=== PATIENT | male | born 1950 | race Caucasian/White ===

== ENCOUNTER 2017-04-12 09:32 | Inpatient (IN) | payer MEDICARE, OTHER ==
[2017-04-12] VITALS (7 sets, daily range): BP systolic 122–181; BP diastolic 56–89; PULSE 91–110; RESP 18–25; O2SAT 90–94
[~2017-04-12] VITALS: Ht 180.3 cm; Wt 154.4 kg
[~2017-04-12 09:32] MED LIST: ACAR25TA PO; ASA325 PO; DIT5 PO; FURO-3 PO; GLPZ5T1 PO; GLU500 PO; K10 PO; LIP20 PO; LOP50 PO; URO10ERT PO
[2017-04-12] MEDS ORDERED: Ondansetron 2 mg/mL 2 mL Inj IV PRN (10:00)
[2017-04-12] MEDS ORDERED: 0.9% Sodium Chloride 1,000 ML IV ONE ×2 (10:00→12:55)
[2017-04-12 10:08] LABS: BASOPHILS % (AUTO) 0.4 % (0-3); EOSINOPHILS % (AUTO) 0.5 % (0-5); Mean Corpuscular Hemoglobin 28.9 pg (27.0-35.0); Mean Corpuscular Volume 90.2 fL (81-100); NEUTROPHILS % (AUTO) 78.2 % (40-74); Platelet Count 154 bil/L (150-400)
--- NOTE | 2017-04-12 10:15 | ED.REPORT ---
HPI-General Illness Date of Service Apr 12, 2017 ED Provider: Cyrus Ford MD The patient is a 66 year old male w/ a hx of morbid obesity, sleep apnea, DM II and stent placed 10 years ago presents to the ED via EMS due to dizziness for the past 6 months and increased in severity today. The patient had 2 episodes of dizziness today, no LOC. The first occurrence, the patient felt dizzy and weak, fell in the shower and pressed his lifeline button. EMS arrived, performed a lift assist and then left. Later in the morning, he felt dizzy again and called [facility] a second time. Pt describes the sensation as feeling "unsteady and weak on his feet." Pt also reports a rash on his lower abdomen. He lives alone in an apartment and has fallen down in the shower 5 times in the past year. His regular doctor is Dr. Brody Borjas. The pt is a poor historian. He denies fever, chest pain, SOB and cough. Pt is a full code. Nursing Notes Stated Complaint: WEAKNESS Chief Complaint: General Complaint Nursing Notes Reviewed: Yes Allergies: Coded Allergies: No Known Allergies (Verified , 04/05/04) Scheduled Acarbose (Acarbose) 50 Mg Tablet 50 MG PO TIDWM Alfuzosin ER (Alfuzosin ER) 10 Mg Tab.er.24h 10 MG PO DAILY Aspirin (Aspirin) 325 Mg Tablet 325 MG PO DAILY Atorvastatin Calcium (Atorvastatin Calcium) 80 Mg Tablet 80 MG PO DAILY Glipizide ER (Glipizide ER) 10 Mg Tab.er.24 10 MG PO QAM Metformin (Glucophage) 1,000 Mg Tablet 1,000 MG PO BID Metoprolol Tartrate (Metoprolol Tartrate) 50 Mg Tablet 50 MG PO BID Oxybutynin Chloride (Oxybutynin Chloride) 5 Mg Tablet 5 MG PO BID Sertraline HCl (Sertraline) 50 Mg Tablet 50 MG PO DAILY Scheduled PRN Albuterol HFA (Proair HFA) 8.5 Gm Hfa.aer.ad 2 PUFFS INHALATION Q4H PRN PRN For Shortness of Breath Fluticasone Propionate (Fluticasone Propionate Nasal) 16 Gm [place].susp 2 SPRAY NS DAILY PRN PRN For Congestion Furosemide (Furosemide) 40 Mg Tablet 40 MG PO QAM PRN PRN edema Potassium Chloride (Potassium Chloride) 10 Meq Capsule.er 10 MEQ PO QAM PRN PRN w/lasix General Time Seen by MD: 10:00 Chief Complaint Dizziness Hx Obtained From: Patient Arrived By: Ambulance Sudden in Onset?: Yes Onset Occurred: 1 - 4 hours ago Symptom Duration: Since onset Caused by: Accidental Context: Occurred at: Home injury Severity: Current: No pain currently Associated with: Reports: Dizziness, Weakness Recent Healthcare: No recent doctor visit, No recent hospitalization Similar Sx Previous: Yes Past Medical History Past Medical History DM II sleep apnea Past Surgical History 2 stents placed 2002 Reports: Cataract surgery Smoking History Current Every Day Smoker Social History Other Social History: Lives alone, Local resident Ambulatory Status Independent Review of Systems Full Review of Systems Constitutional: Denies: Fever Respiratory: Denies: Non-productive cough, Shortness of breath Cardiovascular: Denies: Chest pain Skin: Reports Rash (lower abdomen) Neurologic: Reports: Dizziness, Weakness, Denies: Change LOC Complete sys rev & neg: except as marked. Physical Exam Vital Signs Vital Signs Date Time Temp Pulse Resp B/P Pulse Ox O2 Delivery O2 Flow Rate FiO2 04/12/17 12:44 104 20 141/89 93 Room Air 04/12/17 09:40 36.7 110 25 122/63 91 Room Air Initial VS: Reviewed General/Constitutional: Awake, Alert, Cooperative Head / Eyes: Atraumatic, Normocephalic, PERRL, EOMI Neck: Atraumatic, Supple Respiratory / Chest: Atraumatic, No respiratory distress Cardiovascular: Heart rate NL, Regular rhythm, Heart sounds NL, No gallop, No murmurs, No rubs Abdomen: Non-tender, BS normoactive erythematous rash on lower abdomen rash is not warm Lower Extremity / Pelvis / MS: Atraumatic, Inspection NL, No edema Skin: Color NL, No rash, Dry Neurologic: Oriented X3, Speech NL, No motor deficits Interpretation & Diagnostics Lab Results Interpretation Result Diagram: 04/12/17 1004 04/12/17 1004 Test 04/12/17 10:04 04/12/17 12:30 White Blood Count 13.3th/mm3 (3.8-10.1) Red Blood Count 5.32mil/mm3 (4.40-5.80) Hemoglobin 15.4g/dL (13.8-17.2) Hematocrit 48.0% (41.0-50.0) Mean Corpuscular Volume 90.2fL (81-100) Mean Corpuscular Hemoglobin 28.9pg (27.0-35.0) Mean Corpuscular Hemoglobin Concent 32.1% (32.0-37.0) Red Cell Distribution Width 13.6% (12.3-15.4) Platelet Count 154bil/L (150-400) Neutrophils (%) (Auto) 78.2% (40-74) Lymphocytes (%) (Auto) 13.7% (14-46) Monocytes (%) (Auto) 7.0% (4-12) Eosinophils (%) (Auto) 0.5% (0-5) Basophils (%) (Auto) 0.4% (0-3) Sodium Level 141mEq/L (134-144) Potassium Level 3.9mEq/L (3.5-5.2) Chloride Level 101mEq/L (97-108) Carbon Dioxide Level 16mmol/L (18-29) Blood Urea Nitrogen 23mg/dL (8-27) Creatinine 1.16mg/dL (0.76-1.27) Estimat Glomerular Filtration Rate 67mL/min (>59) Glucose Level 356mg/dL (60-99) Calcium Level 10.1mg/dL (8.5-10.1) Magnesium Level 1.6mg/dL (1.6-2.6) Total Bilirubin 0.7mg/dL (0.0-1.2) Aspartate Amino Transf (AST/SGOT) 18U/L (0-50) Alanine Aminotransferase (ALT/SGPT) 17U/L (0-44) Alkaline Phosphatase 141U/L (25-160) Troponin T < 0.010ug/L (0.0-0.011) Total Protein 8.0g/dL (6.4-8.4) Albumin 4.0g/dL (3.4-5.0) Urine Color Yellow (YELLOW) Urine Appearance Clear (CLEAR,HAZY) Urine pH 5.0 (5.0-8.0) Urine Specific [place] 1.025 (1.003-1.035) Urine Protein Tracemg/dL (NEG,TRACE) Urine Glucose (UA) >1000mg/dL (NEGATIVE) Urine Ketones Negativemg/dL (NEGATIVE) Urine Occult Blood Negative (NEGATIVE) Urine Nitrite Negative (NEGATIVE) Urine Bilirubin Negative (NEGATIVE) Urine Urobilinogen Normalmg/dL (NORMAL) Urine Leukocyte Esterase Negative (NEGATIVE) Urine RBC 0-2/hpf (0-2) Urine WBC 0-5/hpf (0-5) Urine Epithelial Cells None/hpf (NONE-MOD) Urine Crystals None seen (NONE SEEN) Urine Bacteria None/hpf (NONE-FEW) Urine Hyaline Casts Occasional/lpf (NONE) Urine Granular Casts None seen (NONE SEEN) Urine Waxy Casts None seen (NONE SEEN) Urine Red Blood Cell Casts None seen (NONE SEEN) Urine White Blood Cell Casts None seen (NONE SEEN) Urine Mucus Present (None Seen) Urine Trichomonas None seen (NONE SEEN) Urine Yeast None (NONE SEEN) Urinalysis Comment None Urine Culture Reflexed Not indicated ECG Interpretation Time: 10:48 Interpreted by: ED physician Rhythm / Conduction: Tachycardia (rate 103) X-Ray Chest Interpretation Chest Xray Interpretation: IMPRESSION: Developing left basilar airspace disease is suspicious for pneumonia. Atelectasis and/or pleural effusion may also be present. Dictated by: Mike Chung M.D. on 04/12/2017 at 9:29 Approved by: Mike Chung M.D. on 04/12/2017 at 9:30 View: Portable Interpretation / Wet Read by: Interpret - Radiologist Re-Eval/Medical Decision Med Decision/Clinical Course 66-year-old male presenting with generalized weakness and near collapse. He is tachycardic and tachypneic with a leukocytosis elevated lactate and an infiltrate on his chest x-ray. Blood cultures have been obtained. He was given Rocephin and azithromycin covering for her to be required pneumonia. Is given fluid resuscitation. We admitted to the hospitalist service. Consultation : Referral / Consult Name: Yoni Berg Consulted With: Hospitalist Call Returned at: 13:55 Equipment Validation Engineer: Agrees with eval, Agrees with plan, Accepts admit Note: Case discussed. Dr. Berg accepts admit. Counseled Regarding: Diagnosis, Lab results, Need for admission Discharge & Departure Primary Impression: Community acquired bacterial pneumonia Additional Impression: Near syncope Disposition: ADMITTED TO HOSPITAL Discharge Condition All VS Reviewed: Yes Condition: Stable Referrals: Brody Borjas MD (PCP) Scribe Attestation Portion of this note were transcribed by Trinh Anderson. Dr. Liliana Rdoriguez, personally performed the history, physical exam, and medical decision-making: I reviewed and confirmed the accuracy for the information in the transcribed note. Signed by: westley García, 04/12/17 1400 copies to: Brody Borjas MD, Donald L MD Apr 12, 2017 10:15 Trinh Anderson Apr 12, 2017 10:22 Rhythm / Conduction: Tachycardia (rate 103) X-Ray Chest Interpretation Chest Xray Interpretation: IMPRESSION: Developing left basilar airspace disease is suspicious for pneumonia. Atelectasis and/or pleural effusion may also be present. Dictated by: Mike Chung M.D. on 04/12/2017 at 9:29 Approved by: Mike Chung M.D. on 04/12/2017 at 9:30 View: Portable Interpretation / Wet Read by: Interpret - Radiologist Re-Eval/Medical Decision Consultation : Referral / Consult Name: Yoni Berg Consulted With: Hospitalist Call Returned at: 13:55 Equipment Validation Engineer: Agrees with eval, Agrees with plan, Accepts admit Note: Case discussed. Dr. Berg accepts admit. Counseled Regarding: Diagnosis, Lab results, Need for admission Discharge & Departure Primary Impression: Community acquired bacterial pneumonia Additional Impression: Near syncope Disposition: ADMITTED TO HOSPITAL Discharge Condition All VS Reviewed: Yes Condition: Stable Referrals: Brody Borjas MD (PCP) Scribe Attestation Portion of this note were transcribed by Trinh Anderson. Dr. Liliana Rodriguez, personally performed the history, physical exam, and medical decision-making: I reviewed and confirmed the accuracy for the information in the transcribed note. Signed by: westley García, 04/12/17 1400 copies to: Brody Borjas MD, Donald L MD Apr 12, 2017 10:15 Trinh Anderson Apr 12, 2017 10:22 and confirmed the accuracy for the information in the transcribed note. Signed by: westley García, 04/12/17 1400 copies to: Brody Borjas MD, Donald L MD Apr 12, 2017 10:15 Trinh Anderson Apr 12, 2017 10:22
--- NOTE | 2017-04-12 10:32 | DRSVH ---
PROCEDURE: X-RAY CHEST ONE VIEW, PORTABLE ([id number]) INDICATIONS: gen weakness and tachycardia TECHNIQUE: One view of the chest was acquired. COMPARISON: [facility], CR, CHEST 1VW (PORTABLE), 03/26/2013, 22:24. [facility], CT, CHEST/ABD/PELVIS W/CON (PNL), 03/29/2013, 10:49. FINDINGS: Surgical changes and devices: None. Lungs and pleura: There appears to be developing airspace disease at the left lung base. The left di aphragm is least partially obscured. Aeration of the right lung is within normal limits. Mediastinum: Mediastinal contours appear normal. Heart size is normal. Bones and chest wall: No suspicious bony lesions. Overlying soft tissues appear unremarkable. IMPRESSION: Developing left basilar airspace disease is suspicious for pneumonia. Atelectasis and/or pleural effusion may also be present. Dictated by: Mike Chung M.D. on 04/12/2017 at 9:29 Approved by: Mike Chung M.D. on 04/12/2017 at 9:30
[2017-04-12 10:47] LABS: Magnesium 1.6 mg/dL (1.6-2.6); TROPONIN T < 0.010 ug/L (0.0-0.011)
[2017-04-12 12:59] LABS: APPEARANCE,URINE CLEAR (CLEAR,HAZY); COLOR,URINE YELLOW (YELLOW); OCCULT BLOOD,URINE NEGATIVE (NEGATIVE); UROBILINOGEN,URINE NORMAL (NORMAL)
[2017-04-12] MEDS ORDERED: Azithromycin Inj 500 MG in Dextrose 5% w/Vial Mate 250 ML IV ONE (13:10)
[2017-04-12] MEDS ORDERED: cefTRIAXone Inj 2,000 MG in Dextrose 5% Minibag Plus 50 ML IV ONE (13:10)
[2017-04-12] MEDS ORDERED: Ondansetron 2 mg/mL 2 mL Inj IVPUSH PRN ×2 (14:00→19:30)
[2017-04-12] MEDS ORDERED: Alum-Mag Hydrox-Simeth 30 mL Suspension PO PRN ×2 (14:00→19:30)
[2017-04-12] MEDS ORDERED: METF1000 PO (14:12)
[2017-04-12] MEDS ORDERED: POTA10CA42 PO (14:12)
[2017-04-12] MEDS ORDERED: SERT50TA9 PO (14:12)
[2017-04-12] MEDS ORDERED: FURO40TA4 PO (14:12)
[2017-04-12] MEDS ORDERED: ALFU10TA11 PO (14:12)
[2017-04-12] MEDS ORDERED: ASPI325T32 PO (14:12)
[2017-04-12] MEDS ORDERED: ATOR80TA77 PO (14:12)
[2017-04-12] MEDS ORDERED: ACAR50TA3 PO (14:12)
[2017-04-12] MEDS ORDERED: GLIP5TAB21 PO (14:12)
[2017-04-12] MEDS ORDERED: FLUT16SP NS (14:13)
[2017-04-12] MEDS ORDERED: ALBU8.5H2 INHALATION (14:18)
[2017-04-12] MEDS ORDERED: OXYB5TAB10 PO (14:18)
[2017-04-12] MEDS ORDERED: METO50TA3 PO (14:18)
--- NOTE | 2017-04-12 15:07 | NUR ---
Admit to [facility] Patient report called by Kellie Burger. Patient arrived to room 3017 via gurney and required 2 person extensive assist to scoot to bed. Patient was oriented to room, call light, television, staff, and visiting hours. Patient has general overall dry skin, a rash on abdomen, rash on lower back, scrotum is red and excoriated. Patient bed locked and call light within reach.
--- NOTE | 2017-04-12 15:34 | NUR ---
Personal belongings Patient was offered to place personal belongings in safe. Patient had wallet with $135, 3 visa cards and several store discount cards in it. A set of keys were placed in safety bag to be locked in safe as well.
--- NOTE | 2017-04-12 19:18 | PCM.HPMED ---
Subjective Date of Service Apr 12, 2017 Primary Provider: Admitting Physician: Yoni Berg Primary Care Physician: Brody Borjas MD Attending Physician: Yoni Berg Chief Complaint: near syncope, weakness History of Present Illness: 62-year-old gentleman with known diabetes mellitus type 2, coronary disease, hypertension, hyperlipidemia, obstructive sleep apnea and morbid obesity, who presents today with complaint of near syncope, generalized weakness and fall earlier today. He says he has been having symptoms of lightheadedness and weakness for at least the past 3-5 days but his symptoms were more pronounced today. While taking a shower earlier today he felt light headed and fell but says did not his head and did not loose consciousness. He called EMS who performed lift assist. But when his symptoms persisted he called EMS again and asked to be brought to the ED. He denies any fever, chills, cough, SOB, sore throat, ulcer, or pain any where. He does report some erythema of his abdominal pannus. In the ED his workup has been suggestive of possible pneumonia and he has received a dose of Ceftriaxone and Azithromycin. Review of Systems: Constitutional: Negative, except as otherwise mentioned in the history above. Ophthalmologic: Negative, except as otherwise mentioned in the history above. Cardiovascular: Negative, except as otherwise mentioned in the history above. Respiratory: Negative, except as otherwise mentioned in the history above. Gastrointestinal: Negative, except as otherwise mentioned in the history above. Genitourinary: Negative, except as otherwise mentioned in the history above. Musculoskeletal: Negative, except as otherwise mentioned in the history above. Neurological: Negative, except as otherwise mentioned in the history above. Psychiatric: Negative, except as otherwise mentioned in the history above. Hematologic/Lymphatic: Negative, except as otherwise mentioned in the history above. Allergic/Immunologic: Negative, except as otherwise mentioned in the history above. Allergies Coded Allergies: No Known Allergies (Verified , 04/05/04) Home Medications Acarbose (Acarbose) 50 Mg Tablet 50 MG PO TIDWM Alfuzosin ER (Alfuzosin ER) 10 Mg Tab.er.24h 10 MG PO DAILY Aspirin (Aspirin) 325 Mg Tablet 325 MG PO DAILY Atorvastatin Calcium (Atorvastatin Calcium) 80 Mg Tablet 80 MG PO DAILY Glipizide ER (Glipizide ER) 10 Mg Tab.er.24 10 MG PO QAM Metformin (Glucophage) 1,000 Mg Tablet 1,000 MG PO BID Metoprolol Tartrate (Metoprolol Tartrate) 50 Mg Tablet 50 MG PO BID Oxybutynin Chloride (Oxybutynin Chloride) 5 Mg Tablet 5 MG PO BID Sertraline HCl (Sertraline) 50 Mg Tablet 50 MG PO DAILY Scheduled PRN Albuterol HFA (Proair HFA) 8.5 Gm Hfa.aer.ad 2 PUFFS INHALATION Q4H PRN PRN For Shortness of Breath Fluticasone Propionate (Fluticasone Propionate Nasal) 16 Gm [place].susp 2 SPRAY NS DAILY PRN PRN For Congestion Furosemide (Furosemide) 40 Mg Tablet 40 MG PO QAM PRN PRN edema Potassium Chloride (Potassium Chloride) 10 Meq Capsule.er 10 MEQ PO QAM PRN PRN w/lasix Exam Vital Signs & I/O Vital Sign- Last 8 Hours Date Time Temp Pulse Resp B/P Pulse Ox O2 Delivery O2 Flow Rate FiO2 04/12/17 17:23 36.1 95 20 150/84 90 Room Air 04/12/17 15:12 36.7 91 22 181/68 91 Room Air 04/12/17 15:10 93 04/12/17 14:12 95 18 129/56 94 Room Air 04/12/17 12:44 104 20 141/89 93 Room Air Lab & Micro Results Laboratory Tests Test 04/12/17 10:04 04/12/17 12:00 04/12/17 12:30 White Blood Count 13.3th/mm3 (3.8-10.1) Red Blood Count 5.32mil/mm3 (4.40-5.80) Hemoglobin 15.4g/dL (13.8-17.2) Hematocrit 48.0% (41.0-50.0) Mean Corpuscular Volume 90.2fL (81-100) Mean Corpuscular Hemoglobin 28.9pg (27.0-35.0) Mean Corpuscular Hemoglobin Concent 32.1% (32.0-37.0) Red Cell Distribution Width 13.6% (12.3-15.4) Platelet Count 154bil/L (150-400) Neutrophils (%) (Auto) 78.2% (40-74) Lymphocytes (%) (Auto) 13.7% (14-46) Monocytes (%) (Auto) 7.0% (4-12) Eosinophils (%) (Auto) 0.5% (0-5) Basophils (%) (Auto) 0.4% (0-3) Sodium Level 141mEq/L (134-144) Potassium Level 3.9mEq/L (3.5-5.2) Chloride Level 101mEq/L (97-108) Carbon Dioxide Level 16mmol/L (18-29) Blood Urea Nitrogen 23mg/dL (8-27) Creatinine 1.16mg/dL (0.76-1.27) Estimat Glomerular Filtration Rate 67mL/min (>59) Glucose Level 356mg/dL (60-99) Calcium Level 10.1mg/dL (8.5-10.1) Magnesium Level 1.6mg/dL (1.6-2.6) Total Bilirubin 0.7mg/dL (0.0-1.2) Aspartate Amino Transf (AST/SGOT) 18U/L (0-50) Alanine Aminotransferase (ALT/SGPT) 17U/L (0-44) Alkaline Phosphatase 141U/L (25-160) Troponin T < 0.010ug/L (0.0-0.011) Total Protein 8.0g/dL (6.4-8.4) Albumin 4.0g/dL (3.4-5.0) Lactic Acid Level 2.4mmol/L (0.4-2.0) Urine Color Yellow (YELLOW) Urine Appearance Clear (CLEAR,HAZY) Urine pH 5.0 (5.0-8.0) Urine Specific [place] 1.025 (1.003-1.035) Urine Protein Tracemg/dL (NEG,TRACE) Urine Glucose (UA) >1000mg/dL (NEGATIVE) Urine Ketones Negativemg/dL (NEGATIVE) Urine Occult Blood Negative (NEGATIVE) Urine Nitrite Negative (NEGATIVE) Urine Bilirubin Negative (NEGATIVE) Urine Urobilinogen Normalmg/dL (NORMAL) Urine Leukocyte Esterase Negative (NEGATIVE) Urine RBC 0-2/hpf (0-2) Urine WBC 0-5/hpf (0-5) Urine Epithelial Cells None/hpf (NONE-MOD) Urine Crystals None seen (NONE SEEN) Urine Bacteria None/hpf (NONE-FEW) Urine Hyaline Casts Occasional/lpf (NONE) Urine Granular Casts None seen (NONE SEEN) Urine Waxy Casts None seen (NONE SEEN) Urine Red Blood Cell Casts None seen (NONE SEEN) Urine White Blood Cell Casts None seen (NONE SEEN) Urine Mucus Present (None Seen) Urine Trichomonas None seen (NONE SEEN) Urine Yeast None (NONE SEEN) Urinalysis Comment None Urine Culture Reflexed Not indicated Microbiology 04/12/17 Blood Culture, Received Pending Result Diagram: 04/12/17 1004 04/12/17 1004 PMH 1. Coronary disease status post stenting for complex 90% LAD lesion and PDA lesion in December of 2003. 2. Diabetes type 2 3. Obstructive sleep apnea on CPAP. 4. Hypertension. 5. Hyperlipidemia. Surgical History none Family History Significant for diabetes which killed his mother, father, a sister, aunts and uncle. Social History Hx Alcohol Use: No Hx Substance Use: No Hx Tobacco Use: Yes (HX 2 PPD FOR 35 YEARS but quit in 2003) Smoking Status: Former Smoker Exam Vital Signs Vital Sign - Last Date Time Temp Pulse Resp B/P Pulse Ox O2 Delivery O2 Flow Rate FiO2 04/12/17 17:23 36.1 95 20 150/84 90 Room Air Exam morbidly obese male General: Alert, Oriented X3, Cooperative, No Acute Distress Head: Normal Eyes: PERRLA, EOMI, Scleral Anicteric Nose: Mucous Membr Moist/[place] Mouth: Mucous Membr Moist/[place] Neck: Supple Chest & Lungs: Chest Wall Normal, Clear to auscultation & percussion Cardiovascular: Regular Rate/Rhythm Pulses: NL carotid, radial, femoral, DP, PT Abdomen: Non-tender, Non-distended, Normoactive bowel tones, Soft Extremities: No cyanosis/clubbing/edma bilat Skin: Other (notable for erythema of at the skin fold of abdominal pannus) Neurological: Grossly Neurologically Intact, Cranial Nerves 2-12 Intact, Normal Speech Lymphatic: Other Lymph Nodes (no signficiant lymphadenoapthy) Lab and Diagnostics Result Diagram: 04/12/17 1004 04/12/17 1004 X-Rays, CTs and MRIs Date of Service: 04/12/17 1000 PROCEDURE: X-RAY CHEST ONE VIEW, PORTABLE ([id number]) IMPRESSION: Developing left basilar airspace disease is suspicious for pneumonia. Atelectasis and/or pleural effusion may also be present. Dictated by: Mike Chung M.D. on 04/12/2017 at 9:29 Approved by: Mike Chung M.D. on 04/12/2017 at 9:30 Assessment & Plan 62-year-old gentleman with known diabetes mellitus type 2, coronary disease, hypertension, hyperlipidemia, obstructive sleep apnea and morbid obesity, who presents today with complaint of near syncope, generalized weakness and fall. # Acute pneumonia, likely community acquired. Present on admission - Continue with IV Rocephin and Azithromycin as started in ED - Check sputum culture - Followup blood cultures - MRSA screen - Supportive care including IVF, antiemetics, and pain control as needed # Acute on somewhat chronic near syncope and generalized weakness. present on admission - Likely due to underlying pneumonia - IV fluid resucitation - Check Echo - Check orthostatics # Diabetes type 2. - HgA1C. - Hold home oral meds including Metformin and glipizide - Start sliding scale insulin # Coronary artery disease status post stenting x2. Presumed stable for now - Continue with Aspirin and Statin - Continue home beta-altagracia # History of hypertension - Resume his metoprolol, - Hold his Lasix at this time given elevated Lactic acid and suspected underlying pneumonia and possible developing sepsis # Hyperlipidemia - Continue with Statin # Obstructive sleep apnea - Restart his CPAP # Morbid obesity. - Continued issue - Further followup by PCP as outpatient Expected length of hospital stay is greater than 2 midnights and likely 2-3 days GI Prophylaxis: Not indicated VTE Prophylaxis: Sub-Q Heparin (Unfractionated) VTE Mechanical Devices: Intermittant Pneumatic CD Resuscitation Status: CPR: Attempt Resuscitation (discussed and verified with patient) Time spent 60 min Yoni Berg Apr 12, 2017 19:18
[2017-04-12] MEDS ORDERED: Polyethylene Glycol (PEG) 17 Gm Powder PO PRN (19:30)
[2017-04-12] MEDS: cefTRIAXone Inj 2,000 MG in Dextrose 5% Minibag Plus 50 ML IV SCH (19:30)
[2017-04-12] MEDS ORDERED: Fluticasone 0.05% 15 Spray/2 Gm 16 Gm Nasal Spray NASAL PRN (19:35)
[2017-04-12] MEDS ORDERED: Albuterol HFA 60 Puff 8 Gm Inhaler INHALATION PRN (19:35)
[2017-04-12] MEDS ORDERED: Albuterol 2.5 mg/3 mL Inhalation Solution NEB PRN (19:55)
[2017-04-12] MEDS: Insulin Human REGular 300 Unit/3 mL Inj SUBQ SCH (22:27)
[2017-04-13] VITALS (10 sets, daily range): BP systolic 107–149; BP diastolic 71–82; PULSE 67–99; RESP 18–20; O2SAT 90–98
[2017-04-13] MEDS: Heparin 5,000 Unit/mL Inj SUBQ SCH ×3 (00:30→17:21)
[2017-04-13 07:27] LABS: BASOPHILS % (AUTO) 0.5 % (0-3); EOSINOPHILS % (AUTO) 2.1 % (0-5); MONOCYTES % (AUTO) 9.7 % (4-12); Mean Corpuscular Hemoglobin 29.4 pg (27.0-35.0); NEUTROPHILS % (AUTO) 66.2 % (40-74); Platelet Count 118 bil/L (150-400)
[2017-04-13 07:44] LABS: INR 0.97 ratio
[2017-04-13 08:09] LABS: TROPONIN T < 0.010 ug/L (0.0-0.011)
[2017-04-13 08:11] LABS: Magnesium 1.8 mg/dL (1.6-2.6)
[2017-04-13] MEDS: Azithromycin Inj 500 MG in Dextrose 5% w/Vial Mate 250 ML IV SCH (08:38)
[2017-04-13] MEDS: Insulin Human REGular 300 Unit/3 mL Inj SUBQ SCH ×3 (08:39→17:21)
--- NOTE | 2017-04-13 10:46 | DRSVH ---
[facility] [address] [place] [address] Echocardiogram Report Name: ANTHONY HELTON LStudy Nba e: 04/13/2017 Height: 71 in Hospital Exam Location: [facility] Weight: 331 lb Gender: Male BSA: 2.6 m2 : 1950 Age: 66 yrs BP: 101/71 mmHg Reason For Study: Syncope Performed By: Erin Carr Referring Physician: MAYA ARNOLD Interpretation Summary Technically difficult study. Mild concentric left ventricular hypertrophy with ejection fraction 60-65%. Mildly dilated right ventricle with normal systolic function. Mildly dilated right atrium. Pulmonary artery pressures cannot be estimated because of the lack of a measurable TR jet velocity. Comparison is made with the echocardiogram of 03/27/2013, there has been no significant change. Procedure: A two-dimensional transthoracic echocardiogram with color flow and Doppler was performed. The study quality was technically difficult. A contrast injection of Definity was performed to improve assessment of LV function. Comparison is made with the echocardiogram of 03/27/2013. The patient was imaged in the supine position. The patient was in sinus rhythm with a heart rate varying from 78-95 bpm. Left Ventricle: The left ventricle is normal in size. There is mild concentric left ventricular hypertrophy. The ejection fraction is estimated to be 60-65%. There are no focal wall motion abnormalities. Spectral Doppler of the mitral valve shows a normal E/A wave ratio. Right Ventricle: The right ventricle is mildly dilated. The right ventricular systolic function is normal. Atria: The left atrial size is normal. The right atrium is mildly dilated. Mitral Valve: The mitral valve is normal in structure and function. There is trace mitral regurgitation. Aortic Valve: The aortic valve is trileaflet. The aortic valve is slightly calcified. There is no aortic valve stenosis. There is no aortic regurgitation. Tricuspid Valve: The tricuspid valve is normal in structure and function. There is trace tricuspid regurgitation. Pulmonary artery pressures cannot be estimated because of the lack of a measurable TR jet velocity. Pulmonic Valve: The pulmonic valve is not well visualized. There is trace pulmonic regurgitation. Great Vessels: The aortic root is normal size. The ascending aorta is normal in size. The aortic arch could not be visualized. The IVC is dilated (diameter is greater than 2.1 cm) and it collapses less than 50% with a sniff. This suggests a high right atrial pressure of 15 mm Hg. Pericardium/ Pleura There is no pericardial effusion. There is an anterior echo-free space consistent with a fat pad. There is no pleural effusion. MMode/2D Measurements & Calculations LVIDd: 5.7 cm RA long axis LVOT diam LVIDs: 3.9 cm LA A2 area: 18.8 cm FS: 31.1 % LA A4 area: 23.3 cm RA area asc Aorta IVSd: 1.3 cm LA length (vol): 5.7 cm Diam: 3.6 cm LVPWd: 1.2 cm LA vol: 65.2 ml : 17.7 cm LA vol index RA vol: 48.4 ml RA : 18.5 mm2 IVC diam: 2.5 cm LV terrell. diameter/BSA LV sys. diameter/BSA (cm/m^2): 2.2 (cm/m^2): 1.5 Doppler Measurements & Calculations Ao V2 max: 133.4 cm/sec MV E max bowen MV E/A: 0.91 PA V2 max Ao max P.1 mmHg : 60.9 cm/sec : 70.0 cm/sec Ao mean P.0 mmHg MV A max bowen PA mean PG LVOT Max Bowen : 67.0 cm/sec : 1.2 mmHg : 99.3 cm/sec RUFINO(I,D): 3.4 cm sev ratio: 0.81 MV dec time: 0.18 sec Ao V2 mean LV V1 max PG PA V2 mean : 93.1 cm/sec : 52.3 cm/sec Ao V2 VTI: 24.2 cmLV V1 VTI PA pr(Accel) RUFINO(V,D): 3.1 cm2 : 19.6 cm : 16.7 mmHg RUFINO indexed to BSA (cm^2/m^2): 1.3 Electronically signed by: Dorothy Anthony on Reading Physician:04/13/2017 10:45 AM
--- NOTE | 2017-04-13 12:25 | NUR ---
O2 Needs Pt reports feeling very weak. Currently on RA satting around 90%. 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 Denies SOB but will desat into mid 80s unless HOB is elevated. CPOX monitoring for safety. Pt instructed to use call light if feeling SOB. Addendum: 04/13/17 at 1831 by JAMAICA CARTAGENA RN Adjusted O2 during shift. When pt takes nap, placed O2 and pt required 2.5L oxymask to keep saturation in low 90s. During activity and eating pt will desat into high 80s.
--- NOTE | 2017-04-13 14:44 | NUR ---
Social Work: Initial Assessment Data: Pt is a 66 y/o male admitted for sepsis, community acquired pneumonia. Pt's PCP is Dr Borjas, pt's insurance is Medicare. EMR reviewed. PT recommending SNF for pt. HORSE RANCHER acknowledges MD SNF/HH order. HORSE RANCHER met with pt, role explained. Pt states he lives alone in [place] in a single story home where he uses a walker and a CPAP. Pt does not drive and uses [employer] for transportation, pt has hx of HH and SNF, no LTC or VA benefits, and is not a caregiver. HORSE RANCHER gave pt HH/SNF choice list. Pt agreeable to SNF if his insurance covers it. HORSE RANCHER explained when insurance will cover and when they won't and that no matter what, the MD has to d/c him once medically stable. Pt states understanding. Pt states [facility] where he wants referrals sent and that he prefers the one that he was at for his previous SNF stay but is unsure of which it was at this time. HORSE RANCHER explained that if he discharges tomorrow, he would either need to pay privately for SNF stay or go home with HH, pt states understanding. UR specialist working on referrals for pt to SNF. Assessment: Pt who is independent at baseline. Plan: Pt will either d/c to SNF, [facility] referred, or home with HH. ERICA will continue to follow. ERICA Driver Addendum: 04/13/17 at 1453 by GOLDEN ANNE Amended: Links added.
--- NOTE | 2017-04-13 15:09 | NUR ---
Gave access and faxed facesheet to [facility] and [facility] per VICE PRESIDENT OF COMPLIANCE and order
--- NOTE | 2017-04-13 16:02 | PCM.PNMED ---
Subjective Date of Service Apr 13, 2017 Subjective Denies any new issues/complaints Exam Vital Signs Vital Sign - Last Date Time Temp Pulse Resp B/P Pulse Ox O2 Delivery O2 Flow Rate FiO2 04/13/17 13:14 37.1 83 20 131/78 90 Room Air 04/13/17 06:17 2.00 Intake and Output 04/12/17 04/12/17 04/13/17 Cumulative From/Thru 15:00 23:00 07:00 04/12/17 09:40 - 04/13/17 06:22 Intake Total 1000 ml 650 ml 1650 ml Output Total 200 ml 200 ml Balance 800 ml 650 ml 1450 ml Intake Oral 400 ml 400 ml IV Total 1000 ml 250 ml 1250 ml Output Urine Total 200 ml 200 ml # Voids 1 1 2 Exam General: Alert, Oriented X3, Cooperative, No Acute Distress Head: Normal Eyes: PERRLA, EOMI, Scleral Anicteric Nose: Mucous Membr Moist/[place] Mouth: Mucous Membr Moist/[place] Neck: Supple Chest & Lungs: Chest Wall Normal, Clear to auscultation bilat Cardiovascular: Regular Rate/Rhythm Pulses: NL carotid, radial, femoral, DP, PT Abdomen: Non-tender, Non-distended, Normoactive bowel tones, Soft Extremities: No cyanosis/clubbing/edema bilat Skin: Other (notable for erythema of at the skin fold of abdominal pannus) Neurological: Grossly Neurologically Intact, Cranial Nerves 2-12 Intact, Normal Speech IVs and Medications Medications Reviewed: Medications were reviewed in detail Lab and Diagnostics Result Diagram: 04/13/17 0716 04/13/17 0716 X-Rays, CTs and MRIs Date of Service: 04/12/17 1000 PROCEDURE: X-RAY CHEST ONE VIEW, PORTABLE ([id number]) IMPRESSION: Developing left basilar airspace disease is suspicious for pneumonia. Atelectasis and/or pleural effusion may also be present. Dictated by: Mike Chung M.D. on 04/12/2017 at 9:29 Approved by: Mike Chung M.D. on 04/12/2017 at 9:30 Cardiac Echo Impressions Date of Service: 04/13/17 192 Echocardiogram Report Interpretation Summary Technically difficult study. Mild concentric left ventricular hypertrophy with ejection fraction 60-65%. Mildly dilated right ventricle with normal systolic function. Mildly dilated right atrium. Pulmonary artery pressures cannot be estimated because of the lack of a measurable TR jet velocity. Comparison is made with the echocardiogram of 03/27/2013, there has been no significant change. Electronically signed by: Dorothy Anthony on Reading Physician:04/13/2017 10:45 AM Assessment & Plan 62-year-old gentleman with known diabetes mellitus type 2, coronary disease, hypertension, hyperlipidemia, obstructive sleep apnea and morbid obesity, who presents today with complaint of near syncope, generalized weakness and fall. # Acute pneumonia, likely community acquired. Present on admission - Continue with IV Rocephin and Azithromycin as started in ED - Followup sputum culture - Followup blood cultures - MRSA screen negative - Supportive care including IVF, antiemetics, and pain control as needed # Acute on somewhat chronic near syncope and generalized weakness. present on admission - Likely due to underlying pneumonia - IV fluid resuscitation - Echo without acute change (as noted above) - Check orthostatics # Diabetes type 2. - HgA1C 8.3 - Hold home oral meds including Metformin and glipizide - Continue sliding scale insulin # Coronary artery disease status post stenting x2. Presumed stable for now - Continue with Aspirin and Statin - Continue home beta-altagracia # History of hypertension - Continue Metoprolol, - Resume Lasix in am # Hyperlipidemia - Continue with Statin # Obstructive sleep apnea - CPAP # Morbid obesity. - Continued issue - Further followup by PCP as outpatient Dispo: ? SNF in 1-2 days GI Prophylaxis: Not indicated VTE Prophylaxis: Sub-Q Heparin (Unfractionated) VTE Mechanical Devices: Intermittant Pneumatic CD Resuscitation Status: CPR: Attempt Resuscitation (discussed and verified with patient) Yoni Berg Apr 13, 2017 16:02
[2017-04-13] MEDS: cefTRIAXone Inj 2,000 MG in Dextrose 5% Minibag Plus 50 ML IV SCH (19:46)
[2017-04-14] VITALS (8 sets, daily range): BP systolic 117–151; BP diastolic 71–90; PULSE 67–88; RESP 20; O2SAT 90–96
[2017-04-14] MEDS: Insulin Human REGular 300 Unit/3 mL Inj SUBQ SCH ×5 (00:11→23:11)
[2017-04-14] MEDS: Heparin 5,000 Unit/mL Inj SUBQ SCH ×3 (01:56→16:24)
[2017-04-14] MEDS: Azithromycin Inj 500 MG in Dextrose 5% w/Vial Mate 250 ML IV SCH (08:47)
--- NOTE | 2017-04-14 08:58 | NUR ---
[facility] can accept with to follow Updated MUSIC CRITIC
--- NOTE | 2017-04-14 15:53 | NUR ---
OSMANI Signed @ 1104AM
--- NOTE | 2017-04-14 16:06 | PCM.PNMED ---
Subjective Date of Service Apr 14, 2017 Subjective Denies any new issues/complaints Exam Vital Signs Vital Sign - Last Date Time Temp Pulse Resp B/P Pulse Ox O2 Delivery O2 Flow Rate FiO2 04/14/17 13:59 37.7 70 20 129/71 93 Nasal Cannula 2.00 Intake and Output 04/13/17 04/13/17 04/14/17 Cumulative From/Thru 15:00 23:00 07:00 04/12/17 09:40 - 04/14/17 00:45 Intake Total 1000 ml 892 ml 3542 ml Output Total 200 ml Balance 1000 ml 892 ml 3342 ml Intake Oral 1000 ml 592 ml 1992 ml IV Total 300 ml 1550 ml Output Urine Total 200 ml # Voids 2 2 6 # Bowel Movements 2 1 3 Exam General: Alert, Oriented X3, Cooperative, No Acute Distress Head: Normal Eyes: Scleral Anicteric Nose: Mucous Membr Moist/[place] Mouth: Mucous Membr Moist/[place] Neck: Supple Chest & Lungs: Chest Wall Normal, Clear to auscultation bilat Cardiovascular: Regular Rate/Rhythm Pulses: NL carotid, radial Abdomen: Non-tender, Non-distended, Normoactive bowel tones, Soft Extremities: No cyanosis/clubbing/edema bilat Skin: Other (notable for erythema of at the skin fold of abdominal pannus) Neurological: Grossly Neurologically Intact, Cranial Nerves 2-12 Intact, Normal Speech IVs and Medications Medications Reviewed: Medications were reviewed in detail Lab and Diagnostics Result Diagram: 04/13/17 0716 04/13/17 0716 X-Rays, CTs and MRIs Date of Service: 04/12/17 1000 PROCEDURE: X-RAY CHEST ONE VIEW, PORTABLE ([id number]) IMPRESSION: Developing left basilar airspace disease is suspicious for pneumonia. Atelectasis and/or pleural effusion may also be present. Dictated by: Mike Chung M.D. on 04/12/2017 at 9:29 Approved by: Mike Chung M.D. on 04/12/2017 at 9:30 Cardiac Echo Impressions Date of Service: 04/13/17 192 Echocardiogram Report Interpretation Summary Technically difficult study. Mild concentric left ventricular hypertrophy with ejection fraction 60-65%. Mildly dilated right ventricle with normal systolic function. Mildly dilated right atrium. Pulmonary artery pressures cannot be estimated because of the lack of a measurable TR jet velocity. Comparison is made with the echocardiogram of 03/27/2013, there has been no significant change. Electronically signed by: Dorothy Anthony on Reading Physician:04/13/2017 10:45 AM Assessment & Plan 62-year-old gentleman with known diabetes mellitus type 2, coronary disease, hypertension, hyperlipidemia, obstructive sleep apnea and morbid obesity, who presents today with complaint of near syncope, generalized weakness and fall. # Acute pneumonia, likely community acquired. Present on admission - Continue with IV Rocephin and Azithromycin as started in ED - Followup sputum culture - Followup blood cultures - MRSA screen negative - Supportive care including IVF, antiemetics, and pain control as needed # Acute fever, not present on admission. - Possibly due to pneumonia as noted above - Recheck 2 sets of blood culture # Acute on somewhat chronic near syncope and generalized weakness. present on admission - Likely due to underlying pneumonia - IV fluid resuscitation - Echo without acute change (as noted above) # Diabetes type 2. - HgA1C 8.3 - Hold home oral meds including Metformin and glipizide - Continue sliding scale insulin # Coronary artery disease status post stenting x2. Presumed stable for now - Continue with Aspirin and Statin - Continue home beta-altagracia # History of hypertension - Continue Metoprolol, - Resume home dose Lasix # Hyperlipidemia - Continue with Statin # Obstructive sleep apnea - CPAP # Morbid obesity. - Continued issue - Further followup by PCP as outpatient Dispo: ? SNF in 1-2 days pending remaining afebrile GI Prophylaxis: Not indicated VTE Prophylaxis: Sub-Q Heparin (Unfractionated) VTE Mechanical Devices: Intermittant Pneumatic CD Resuscitation Status: CPR: Attempt Resuscitation (discussed and verified with patient) Yoni Berg Apr 14, 2017 16:06
--- NOTE | 2017-04-14 16:17 | NUR ---
[facility] patient with [facility] to follow when ready Updated INTERNATIONAL COORDINATOR
--- NOTE | 2017-04-14 17:55 | NUR ---
ADLs/Incontinent/Mentation Pt reports feeling weak, unable to get up or move around in bed. Will use call light frequently for minor simple conveniences like adjusting bed. Encouraged and taught pt how to perform simple tasks by self. Pt requires assistance for voiding. Is incontinent of bowel and bladder. Will not alert staff towards when pt is needing to void or change. Has sores in red area from home hygiene. Frequent bed checks and skin care performed. Mentation improved over past 2 days. Pt will joke around with staff a bit. Even made some minorly suggestive comments to female aid. FORMAL SERVICE WAITER informed myself. Accompanied FORMAL SERVICE WAITER during further prolonged care during shift. Pt was appropriate for rest of shift.
[2017-04-14] MEDS: cefTRIAXone Inj 2,000 MG in Dextrose 5% Minibag Plus 50 ML IV SCH (19:59)
[2017-04-15] VITALS (12 sets, daily range): BP systolic 115–142; BP diastolic 65–83; PULSE 61–88; RESP 19–22; O2SAT 92–96
[2017-04-15] MEDS: Heparin 5,000 Unit/mL Inj SUBQ SCH ×3 (00:51→16:27)
[2017-04-15 06:14] LABS: BASOPHILS % (AUTO) 0.6 % (0-3); EOSINOPHILS % (AUTO) 2.7 % (0-5); MONOCYTES % (AUTO) 8.5 % (4-12); Mean Corpuscular Hemoglobin 29.5 pg (27.0-35.0); Mean Corpuscular Volume 91.4 fL (81-100); NEUTROPHILS % (AUTO) 55.4 % (40-74); Platelet Count 114 bil/L (150-400)
--- NOTE | 2017-04-15 07:37 | NUR ---
Uneventful Night Pt denies any pain/N/V/SOB/fever or chills, VSS, generalized weakness, unable to get up. Cough scant yellow sputum occasionally, sputum sample sent.
[2017-04-15] MEDS: Insulin Human REGular 300 Unit/3 mL Inj SUBQ SCH ×4 (07:45→21:36)
[2017-04-15] MEDS: Azithromycin Inj 500 MG in Dextrose 5% w/Vial Mate 250 ML IV SCH (07:46)
--- NOTE | 2017-04-15 12:24 | NUR ---
Social Work-readiness for discharge: Data:EMR Reviewed. Pt is on day 3 of hospitalization for sepsis per H&P. Pt is not medically stable anticipate tomorrow. PT continues to recommend SNF placement. SW followed up with pt at bedside, SW role explained. SW explained that pt has been accepted at both [facility] and [facility] and SW questioned pt about preference. Pt states he is unsure and would like to think about it. SW explained that SW would follow up tomorrow for a choice, pt agreeable. Paperwork and PASRR in the chart. SW will continue to follow. Assessment:Pt who would benefit from SNF. Plan:[facility] and [facility] have both accepted pt. SW to follow up again with pt tomorrow regarding choice. Paperwork and PASRR in the chart. SW will continue to follow. ERICA Arevalo
--- NOTE | 2017-04-15 14:34 | NUR ---
Daily update Patient alert and oriented to self and place. Patient slow to respond and was sleepy throughout the morning. Patient stated he is starting to feel better and is no longer dizzy when he moves. Patient remains on 2L supplemental oxygen with saturations in the low to mid 90's. Patient did get up and stand at side of bed with PT today. Patient requires 2 person assist to BSC at this point. Patient denied any pain. Bed locked and call light within reach.
--- NOTE | 2017-04-15 15:23 | PCM.PNMED ---
Subjective Date of Service Apr 15, 2017 Subjective Denies any new issues/complaints Exam Vital Signs Vital Sign - Last Date Time Temp Pulse Resp B/P Pulse Ox O2 Delivery O2 Flow Rate FiO2 04/15/17 13:29 Nasal Cannula 2.00 04/15/17 12:41 36.8 71 20 123/67 92 Intake and Output 04/14/17 04/14/17 04/15/17 Cumulative From/Thru 15:00 23:00 07:00 04/12/17 09:40 - 04/15/17 05:45 Intake Total 200 ml 650 ml 1059 ml 5451 ml Output Total 200 ml Balance 200 ml 650 ml 1059 ml 5251 ml Intake Oral 200 ml 650 ml 450 ml 3292 ml IV Total 609 ml 2159 ml Output Urine Total 200 ml # Voids 2 3 2 13 # Bowel Movements 2 2 7 Exam General: Alert, Cooperative, No Acute Distress Head: Normal Eyes: Scleral Anicteric Nose: Mucous Membr Moist/[place] Mouth: Mucous Membr Moist/[place] Neck: Supple Chest & Lungs: Chest Wall Normal, Clear to auscultation bilat Cardiovascular: Regular Rate/Rhythm Pulses: NL carotid, radial Abdomen: Non-tender, Non-distended, Normoactive bowel tones, Soft Extremities: No cyanosis/clubbing/edema bilat Neurological: Grossly Neurologically Intact, Normal Speech IVs and Medications Medications Reviewed: Medications were reviewed in detail Lab and Diagnostics Result Diagram: 04/15/17 0552 04/15/17 0552 X-Rays, CTs and MRIs Date of Service: 04/12/17 1000 PROCEDURE: X-RAY CHEST ONE VIEW, PORTABLE ([id number]) IMPRESSION: Developing left basilar airspace disease is suspicious for pneumonia. Atelectasis and/or pleural effusion may also be present. Dictated by: Mike Chung M.D. on 04/12/2017 at 9:29 Approved by: Mike Chung M.D. on 04/12/2017 at 9:30 Cardiac Echo Impressions Date of Service: 04/13/17 192 Echocardiogram Report Interpretation Summary Technically difficult study. Mild concentric left ventricular hypertrophy with ejection fraction 60-65%. Mildly dilated right ventricle with normal systolic function. Mildly dilated right atrium. Pulmonary artery pressures cannot be estimated because of the lack of a measurable TR jet velocity. Comparison is made with the echocardiogram of 03/27/2013, there has been no significant change. Electronically signed by: Dorothy Anthony on Reading Physician:04/13/2017 10:45 AM Assessment & Plan 62-year-old gentleman with known diabetes mellitus type 2, coronary disease, hypertension, hyperlipidemia, obstructive sleep apnea and morbid obesity, who presents today with complaint of near syncope, generalized weakness and fall. # Acute pneumonia, likely community acquired. Present on admission - Continue with IV Rocephin and Azithromycin as started in ED - MRSA screen negative - Supportive care including IVF, antiemetics, and pain control as needed # Acute mild hypoxic respiratory failure. Present on admission. Ongoing - O2 sat still drops to low 90 on room air - Continue with supplemental O2 and antibiotics noted above # Acute fever, not present on admission. - Possibly due to pneumonia as noted above - Cultures negative to date # Acute on somewhat chronic near syncope and generalized weakness. present on admission - Likely due to underlying pneumonia - IV fluid resuscitation - Echo without acute change (as noted above) # Diabetes type 2. - HgA1C 8.3 - Hold home oral meds including Metformin and glipizide - Continue sliding scale insulin # Coronary artery disease status post stenting x2. Presumed stable for now - Continue with Aspirin and Statin - Continue home beta-altagracia # History of hypertension - Continue Metoprolol, - Resume home dose Lasix # Hyperlipidemia - Continue with Statin # Obstructive sleep apnea - CPAP # Morbid obesity. - Continued issue - Further followup by PCP as outpatient Dispo: ? SNF in 1-2 days pending improved oxygenation and remaining afebrile GI Prophylaxis: Not indicated VTE Prophylaxis: Sub-Q Heparin (Unfractionated) VTE Mechanical Devices: Intermittant Pneumatic CD Resuscitation Status: CPR: Attempt Resuscitation (discussed and verified with patient) Yoni Berg Apr 15, 2017 15:23
[2017-04-15] MEDS: cefTRIAXone Inj 2,000 MG in Dextrose 5% Minibag Plus 50 ML IV SCH (19:32)
[2017-04-16] MEDS: Heparin 5,000 Unit/mL Inj SUBQ SCH ×2 (00:23→07:34)
[2017-04-16 05:32] VITALS: BP 155/75; PULSE 63; RESP 20; O2SAT 94
--- NOTE | 2017-04-16 06:58 | NUR ---
Confusion/Bm's Patient awoke confused around midnight. tried pulling out his IV twice. he was trying to get up out of bed to use the bathroom. patient reoriented to place and situation. Patient is aware that he is a 2 person assist to BSC. patient refused BSC or bed kenyon and decided he would rather go in his brief. bed alarm in place for safety. Q2 hour turns implemented. patient had 3 loose stools over night. will continue to monitor
[2017-04-16] MEDS: Azithromycin Inj 500 MG in Dextrose 5% w/Vial Mate 250 ML IV SCH (07:35)
[2017-04-16] MEDS: Insulin Human REGular 300 Unit/3 mL Inj SUBQ SCH ×2 (07:35→11:44)
[2017-04-16 08:56] VITALS: PULSE 62
[2017-04-16 09:04] VITALS: BP 113/68; PULSE 59; RESP 20; O2SAT 95
--- NOTE | 2017-04-16 09:05 | NUR ---
OSMANI signed. ERICA Arevalo
[2017-04-16] MEDS ORDERED: CEFU500T61 PO (10:13)
--- NOTE | 2017-04-16 10:15 | PCM.DIMED ---
Discharge Instructions Date of Service Apr 16, 2017 Dates of Hospitalization Apr 12, 2017 at 13:45 Discharge Diagnosis Discharge Diagnosis # Acute pneumonia, likely community acquired. Present on admission # Acute mild hypoxic respiratory failure. Present on admission. Resolved # Acute on somewhat chronic near syncope and generalized weakness. present on admission. Improved. - Likely due to underlying pneumonia and dehydration. # Diabetes type 2. - HgA1C 8.3 # Coronary artery disease status post stenting x2. Presumed stable # History of hypertension # Hyperlipidemia # Obstructive sleep apnea on CPAP # Morbid obesity. Diet Discharge Diet: Low fat, Low Sodium, Heart Healthy, Diabetic Activity Discharge Activity: Other (as tolerated and per physical therapy) Patient Instructions Follow-up plan 1. Followup with primary care provider in 4-7 days Follow-up Provider: Brody Borjas MD, Masoud Apr 16, 2017 10:15
--- NOTE | 2017-04-16 11:55 | NUR ---
Social Work-readiness for discharge: Data:EMR reviewed. Pt is on day 4 of hospitalization for Sepsis per H&P. Pt is likely medically stable later today or tomorrow. PT has seen pt and recommended SNF. SW followed up with pt this morning and he is agreeable to going to [facility]. [facility] has been updated. SW will continue to follow. Assessment:Pt who would benefit from SNF. Plan:Pt to discharge to [facility] when medically stable. SW will continue to follow. ERICA Arevalo
--- NOTE | 2017-04-16 12:19 | NUR ---
Social Work-discharge: Data:EMR reviewed. Pt is on day 4 of hospitalization for sepsis per H&P. pt is medically stable for discharge. SULEMA spoke with Mishel Lipscomb at [facility] and confirmed they are able to accept pt today. Mishel has arranged w/c van transport for 1300. SULEMA faxed orders and created packet. SULEMA confirmed with Mishel that she has received orders. SW updated pt at bedside and he is agreeable to plan. Pt declined having SW call anyone for him. RN,UC,pt/family, and [facility] all updated and agreeable to plan. Assessment:pt to benefit from SNF. Plan:Pt to discharge to [facility] today via cabulance at 1300. RN,UC,pt/family, and [facility] all updated and agreeable to plan. ERICA Arevalo
--- NOTE | 2017-04-16 12:35 | NUR ---
Discharge Patient given discharge orders. Packet is ready to take with patient to [facility]. Patient report called to Mishel at [facility]. Transportation will pick patient up at 1300 to transport to [facility]. IV removed fully intact and asymptomatic. Patient assisted to get dressed.
--- NOTE | 2017-04-16 16:06 | PCM.DC.MED ---
Discharge Summary Date of Service Apr 16, 2017 Dates of Hospitalization Date of Hospital Admission Apr 12, 2017 at 13:45 Date of Discharge: Apr 16, 2017 Providers: Admitting Physician: Yoni Arnold Primary Care Physician: Brody Borjas MD Attending Physician: Yoni Arnold Diagnosis at Time of Discharge Diagnosis at Time of Discharge # Acute pneumonia, likely community acquired. Present on admission # Acute mild hypoxic respiratory failure. Present on admission. Resolved # Acute on somewhat chronic near syncope and generalized weakness. present on admission. Improved. - Likely due to underlying pneumonia and dehydration. # Diabetes type 2. - HgA1C 8.3 # Coronary artery disease status post stenting x2. Presumed stable # History of hypertension # Hyperlipidemia # Obstructive sleep apnea on CPAP # Morbid obesity. Procedures XRay, CTs & MRIs Date of Service: 04/12/17 1000 PROCEDURE: X-RAY CHEST ONE VIEW, PORTABLE ([id number]) IMPRESSION: Developing left basilar airspace disease is suspicious for pneumonia. Atelectasis and/or pleural effusion may also be present. Dictated by: Mike Chung M.D. on 04/12/2017 at 9:29 Approved by: Mike Chung M.D. on 04/12/2017 at 9:30 Cardiac Echo Impression Date of Service: 04/13/171928 Echocardiogram Report Interpretation Summary Technically difficult study. Mild concentric left ventricular hypertrophy with ejection fraction 60-65%. Mildly dilated right ventricle with normal systolic function. Mildly dilated right atrium. Pulmonary artery pressures cannot be estimated because of the lack of a measurable TR jet velocity. Comparison is made with the echocardiogram of 03/27/2013, there has been no significant change. Electronically signed by: Dorothy Anthony on Reading Physician:04/13/2017 10:45 AM Brief History 62-year-old gentleman with known diabetes mellitus type 2, coronary disease, hypertension, hyperlipidemia, obstructive sleep apnea and morbid obesity, who presents today with complaint of near syncope, generalized weakness and fall earlier today. He says he has been having symptoms of lightheadedness and weakness for at least the past 3-5 days but his symptoms were more pronounced today. While taking a shower earlier today he felt light headed and fell but says did not his head and did not loose consciousness. He called EMS who performed lift assist. But when his symptoms persisted he called EMS again and asked to be brought to the ED. He denies any fever, chills, cough, SOB, sore throat, ulcer, or pain any where. He does report some erythema of his abdominal pannus. In the ED his workup has been suggestive of possible pneumonia and he has received a dose of Ceftriaxone and Azithromycin. Hospital Course # Acute pneumonia, likely community acquired. Present on admission - Continued with IV Rocephin and Azithromycin as started in ED - Finished 5 days of Azithromycin during this hospital. Will d/c with PO Ceftin as noted below. - MRSA screen negative - Supportive care including IVF, antiemetics, and pain control as needed # Acute mild hypoxic respiratory failure. Present on admission. Resolved. - O2 sat was dropping to low 90 on room air - Continued with supplemental O2 and antibiotics noted above # Acute fever, not present on admission. - Possibly due to pneumonia as noted above - Cultures negative # Acute on somewhat chronic near syncope and generalized weakness. present on admission - Likely due to underlying pneumonia - IV fluid resuscitation given. - Echo without acute change (as noted above) # Diabetes type 2. - HgA1C 8.3 - Held home oral meds including Metformin and glipizide - Continued sliding scale insulin - Will resume oral meds on discharge # Coronary artery disease status post stenting x2. Presumed stable for now - Continued with Aspirin and Statin - Continude home beta-altagracia # History of hypertension - Continued Metoprolol, - Resumed home dose Lasix # Hyperlipidemia - Continued with Statin # Obstructive sleep apnea - CPAP # Morbid obesity. - Further followup by PCP as outpatient # Generalized weakness and deconditioning - Evaluated by PT and recommended SNF for further therapy Exam Vital Signs (Last) Date Time Temp Pulse Resp B/P Pulse Ox O2 Delivery O2 Flow Rate FiO2 04/16/17 09:04 37.0 59 20 113/68 95 Nasal Cannula 2.50 Exam General: Alert, Cooperative, No Acute Distress Head: Normal Eyes: Scleral Anicteric Nose: Mucous Membr Moist/[place] Mouth: Mucous Membr Moist/[place] Neck: Supple Chest & Lungs: Chest Wall Normal, Clear to auscultation bilat Cardiovascular: Regular Rate/Rhythm Pulses: NL carotid, radial Abdomen: Non-tender, Non-distended, Normoactive bowel tones, Soft Extremities: No cyanosis/clubbing/edema bilat Neurological: Grossly Neurologically Intact, Normal Speech Test 04/12/17 10:04 04/12/17 12:30 04/13/17 07:16 04/15/17 05:52 Hemoglobin A1c 8.3% (4.8-5.6) Total Bilirubin 0.7mg/dL (0.0-1.2) Aspartate Amino Transf (AST/SGOT) 18U/L (0-50) Alanine Aminotransferase (ALT/SGPT) 17U/L (0-44) Alkaline Phosphatase 141U/L (25-160) Total Protein 8.0g/dL (6.4-8.4) Albumin 4.0g/dL (3.4-5.0) Urine Color Yellow (YELLOW) Urine Appearance Clear (CLEAR,HAZY) Urine pH 5.0 (5.0-8.0) Urine Specific [place] 1.025 (1.003-1.035) Urine Protein Tracemg/dL (NEG,TRACE) Urine Glucose (UA) >1000mg/dL (NEGATIVE) Urine Ketones Negativemg/dL (NEGATIVE) Urine Occult Blood Negative (NEGATIVE) Urine Nitrite Negative (NEGATIVE) Urine Bilirubin Negative (NEGATIVE) Urine Urobilinogen Normalmg/dL (NORMAL) Urine Leukocyte Esterase Negative (NEGATIVE) Urine RBC 0-2/hpf (0-2) Urine WBC 0-5/hpf (0-5) Urine Epithelial Cells None/hpf (NONE-MOD) Urine Crystals None seen (NONE SEEN) Urine Bacteria None/hpf (NONE-FEW) Urine Hyaline Casts Occasional/lpf (NONE) Urine Granular Casts None seen (NONE SEEN) Urine Waxy Casts None seen (NONE SEEN) Urine Red Blood Cell Casts None seen (NONE SEEN) Urine White Blood Cell Casts None seen (NONE SEEN) Urine Mucus Present (None Seen) Urine Trichomonas None seen (NONE SEEN) Urine Yeast None (NONE SEEN) Urinalysis Comment None Urine Culture Reflexed Not indicated Prothrombin Time 10.4sec (8.1-12.5) Prothromb Time International Ratio 0.97ratio Activated Partial Thromboplast Time 25.7sec (22.8-33.0) Lactic Acid Level 1.2mmol/L (0.4-2.0) Magnesium Level 1.8mg/dL (1.6-2.6) Troponin T < 0.010ug/L (0.0-0.011) White Blood Count 6.6th/mm3 (3.8-10.1) Red Blood Count 4.41mil/mm3 (4.40-5.80) Hemoglobin 13.0g/dL (13.8-17.2) Hematocrit 40.3% (41.0-50.0) Mean Corpuscular Volume 91.4fL (81-100) Mean Corpuscular Hemoglobin 29.5pg (27.0-35.0) Mean Corpuscular Hemoglobin Concent 32.3% (32.0-37.0) Red Cell Distribution Width 12.7% (12.3-15.4) Platelet Count 114bil/L (150-400) Neutrophils (%) (Auto) 55.4% (40-74) Lymphocytes (%) (Auto) 32.8% (14-46) Monocytes (%) (Auto) 8.5% (4-12) Eosinophils (%) (Auto) 2.7% (0-5) Basophils (%) (Auto) 0.6% (0-3) Sodium Level 135mEq/L (134-144) Potassium Level 4.4mEq/L (3.5-5.2) Chloride Level 97mEq/L (97-108) Carbon Dioxide Level 26mmol/L (18-29) Blood Urea Nitrogen 14mg/dL (8-27) Creatinine 0.69mg/dL (0.76-1.27) Estimat Glomerular Filtration Rate 122mL/min (>59) Glucose Level 217mg/dL (60-99) Calcium Level 9.5mg/dL (8.5-10.1) Procalcitonin 0.09ng/mL (0.00-0.08) Discharge Medications Discharge Medications Acarbose (Acarbose) 50 Mg Tablet 50 MG PO TIDWM (Reported) Alfuzosin ER (Alfuzosin ER) 10 Mg Tab.er.24h 10 MG PO DAILY (Reported) Aspirin (Aspirin) 325 Mg Tablet 325 MG PO DAILY (Reported) Atorvastatin Calcium (Atorvastatin Calcium) 80 Mg Tablet 80 MG PO DAILY ( Reported) Cefuroxime Axetil (Cefuroxime) 500 Mg Tablet 500 MG PO BID Prescribed by: YONI ARNOLD MD Glipizide ER (Glipizide ER) 10 Mg Tab.er.24 10 MG PO QAM (Reported) Metformin (Glucophage) 1,000 Mg Tablet 1,000 MG PO BID (Reported) Metoprolol Tartrate (Metoprolol Tartrate) 50 Mg Tablet 50 MG PO BID (Reported) Oxybutynin Chloride (Oxybutynin Chloride) 5 Mg Tablet 5 MG PO BID (Reported) Sertraline HCl (Sertraline) 50 Mg Tablet 50 MG PO DAILY (Reported) As needed Albuterol HFA (Proair HFA) 8.5 Gm Hfa.aer.ad 2 PUFFS INHALATION Q4H PRN PRN For Shortness of Breath (Reported) Fluticasone Propionate (Fluticasone Propionate Nasal) 16 Gm [place].susp 2 SPRAY NS DAILY PRN PRN For Congestion (Reported) Furosemide (Furosemide) 40 Mg Tablet 40 MG PO QAM PRN PRN edema (Reported) Potassium Chloride (Potassium Chloride) 10 Meq Capsule.er 10 MEQ PO QAM PRN PRN w/lasix (Reported) Followup Plan Disposition: SNF Follow-up plan 1. Followup with primary care provider in 4-7 days Discharge Diet: Low fat, Low Sodium, Heart Healthy, Diabetic Discharge Activity: Other (as tolerated and per physical therapy) Follow-up Provider: Brody Borjas MD Time spent 35 min copies to: Brody Borjas MD, Masoud Apr 16, 2017 16:06
== END 2017-04-16 12:55 | DRG 193 ==
LOC: EDBD 09:32 → SED 09:32 → EDUNIT# 09:32 → MPC 13:45
PROVIDERS: ADMIT Internal Medicine; ATTEND Internal Medicine
DX: J18.9 Pneumonia, unspecified organism (principal); J96.01 Acute respiratory failure with hypoxia; Z68.42 Body mass index [BMI] 45.0-49.9, adult; E87.2 Acidosis; E66.01 Morbid (severe) obesity due to excess calories; E11.9 Type 2 diabetes mellitus without complications; F17.200 Nicotine dependence, unspecified, uncomplicated; I10 Essential (primary) hypertension; I25.10 Atherosclerotic heart disease of native coronary artery without angina pectoris; E86.0 Dehydration; E78.5 Hyperlipidemia, unspecified; G47.33 Obstructive sleep apnea (adult) (pediatric); Z79.82 Long term (current) use of aspirin; Z79.51 Long term (current) use of inhaled steroids; Z95.5 Presence of coronary angioplasty implant and graft

== ENCOUNTER 2017-05-01 16:13 | Observation (INO) | payer MEDICARE, OTHER ==
[~2017-05-01] VITALS: Ht 182.9 cm; Wt 145.7 kg
[~2017-05-01 16:13] MED LIST changes: -ACAR25TA PO; +ACAR50TA3 PO; +ALBU8.5H2 INHALATION; +ALFU10TA11 PO; -ASA325 PO; +ASPI325T32 PO; +ATOR80TA77 PO; +CEFU500T61 PO; -DIT5 PO; +FLUT16SP NS; -FURO-3 PO; +FURO40TA4 PO; +GLIP5TAB21 PO; -GLPZ5T1 PO; -GLU500 PO; -K10 PO; -LIP20 PO; -LOP50 PO; +METF1000 PO; +METO50TA3 PO; +OXYB5TAB10 PO; +POTA10CA42 PO; +SERT50TA9 PO; -URO10ERT PO
[2017-05-01 16:20] VITALS: BP 106/64; PULSE 57; RESP 15; O2SAT 95
[2017-05-01] MEDS ORDERED: PROM25SU46 RC (16:34)
[2017-05-01 17:21] LABS: BASOPHILS % (AUTO) 0.6 % (0-3); EOSINOPHILS % (AUTO) 2.4 % (0-5); MONOCYTES % (AUTO) 7.5 % (4-12); Mean Corpuscular Hemoglobin 29.2 pg (27.0-35.0); Mean Corpuscular Volume 90.5 fL (81-100); NEUTROPHILS % (AUTO) 63.2 % (40-74); Platelet Count 155 bil/L (150-400)
[2017-05-01 18:02] VITALS: BP 133/73; PULSE 58; RESP 24; O2SAT 95
--- NOTE | 2017-05-01 18:04 | ED.REPORT ---
HPI-Neurologic Deficit Date of Service May 01, 2017 ED Provider: Cliff Walls MD Pt is a 66 year old male with a history of HTN, DM, and recent bilateral pneumonia and chronic hydrocephali who presents to the ED via EMS complaining of vomiting. He c/o associated nausea, lethargy, and headache. Pt lives at [facility]. HPI is difficult to obtain due to pt's condition. Nursing Notes Stated Complaint: NAUSEA, VOMITING, HEADACHE Chief Complaint: Neuro Symptoms/ Deficits Nursing Notes Reviewed: Yes Allergies: Coded Allergies: No Known Allergies (Verified , 05/01/17) Scheduled Alfuzosin ER (Alfuzosin ER) 10 Mg Tab.er.24h 10 MG PO DAILY Aspirin (Aspirin) 325 Mg Tablet 325 MG PO DAILY Atorvastatin Calcium (Atorvastatin Calcium) 80 Mg Tablet 80 MG PO DAILY Glipizide ER (Glipizide ER) 10 Mg Tab.er.24 10 MG PO QAM Metformin (Glucophage) 1,000 Mg Tablet 1,000 MG PO BID Metoprolol Tartrate (Metoprolol Tartrate) 50 Mg Tablet 50 MG PO BID Sertraline HCl (Sertraline) 50 Mg Tablet 50 MG PO DAILY Scheduled PRN Albuterol HFA (Proair HFA) 8.5 Gm Hfa.aer.ad 2 PUFFS INHALATION Q4H PRN PRN For Shortness of Breath Fluticasone Propionate (Fluticasone Propionate Nasal) 16 Gm [place].susp 2 SPRAY NS DAILY PRN PRN For Congestion Furosemide (Furosemide) 40 Mg Tablet 40 MG PO QAM PRN PRN edema Potassium Chloride (Potassium Chloride) 10 Meq Capsule.er 10 MEQ PO QAM PRN PRN w/lasix Promethazine HCl (Phenergan) 25 Mg Supp.rect 25 MG RC q6hr PRN PRN For Nausea General Time Seen by Provider: 18:04 Chief Complaint Other (Vomiting) Hx Obtained From: Patient, EMS Arrived By: Ambulance Sudden in Onset?: No Onset Occurred: Onset unknown Symptom Duration: Duration unknown Past Medical History Past Medical History ACD CAD Chronic hydrocephali Obstructive sleep apnea Frontal lobe deficit Reports: Diabetes mellitus (II) Past Surgical History Coronary artery stents Cardiac stents (3x) Reports: Cataract surgery Smoking History Former Smoker Social History Alcohol Use: Denies alcohol use Drug Use: Denies drug use Other Social History: Lives alone, Local resident Ambulatory Status Independent Review of Systems Constitutional: Reports: Lethargy GI: Reports: Nausea, Vomiting Neurologic: Reports: Headache Complete sys rev & neg: except as marked. Physical Exam Initial Vital Signs Vital Signs (First) Date Time Temp Pulse Resp B/P Pulse Ox O2 Delivery O2 Flow Rate FiO2 05/01/17 16:20 36.4 57 15 106/64 95 Room Air Initial VS: Reviewed Neck: Supple, Full range of motion (Not stiff) Abdomen / GI: Soft, Non-tender Extremities: Vascular intact, Neuro intact Skin: Warm, Dry, No cyanosis Psychiatric: Mood/affect normal, Behavior normal General/Constitutional: Awake, Alert, Cooperative Deeply somnolent. Wakes up and answers questions, then drifts off to sleep. Head / Eyes: Atraumatic, Normocephalic Respiratory / Chest: Atraumatic, Breath sounds NL, Breath sounds = bilat Cardiovascular: Heart rate NL, Regular rhythm, Heart sounds NL Neurologic: Oriented X3, Speech NL Interpretation & Diagnostics Lab Results Interpretation Result Diagram: 05/01/17 1710 05/01/17 1710 Test 05/01/17 17:10 05/01/17 20:15 05/01/17 20:40 05/01/17 23:30 White Blood Count 8.0th/mm3 (3.8-10.1) Red Blood Count 5.17mil/mm3 (4.40-5.80) Hemoglobin 15.1g/dL (13.8-17.2) Hematocrit 46.8% (41.0-50.0) Mean Corpuscular Volume 90.5fL (81-100) Mean Corpuscular Hemoglobin 29.2pg (27.0-35.0) Mean Corpuscular Hemoglobin Concent 32.3% (32.0-37.0) Red Cell Distribution Width 13.6% (12.3-15.4) Platelet Count 155bil/L (150-400) Neutrophils (%) (Auto) 63.2% (40-74) Lymphocytes (%) (Auto) 26.3% (14-46) Monocytes (%) (Auto) 7.5% (4-12) Eosinophils (%) (Auto) 2.4% (0-5) Basophils (%) (Auto) 0.6% (0-3) Sodium Level 139mEq/L (134-144) Potassium Level 4.3mEq/L (3.5-5.2) Chloride Level 100mEq/L (97-108) Carbon Dioxide Level 26mmol/L (18-29) Blood Urea Nitrogen 14mg/dL (8-27) Creatinine 0.74mg/dL (0.76-1.27) Estimat Glomerular Filtration Rate 112mL/min (>59) Glucose Level 113mg/dL (60-99) Calcium Level 9.8mg/dL (8.5-10.1) Total Bilirubin 0.5mg/dL (0.0-1.2) Aspartate Amino Transf (AST/SGOT) 20U/L (0-50) Alanine Aminotransferase (ALT/SGPT) 24U/L (0-44) Alkaline Phosphatase 114U/L (25-160) Total Protein 7.1g/dL (6.4-8.4) Albumin 3.8g/dL (3.4-5.0) Hold [place] Top Tube Received (Received) Ammonia 22ug/dL (18-53) Urine Color Yellow (YELLOW) Urine Appearance Clear (CLEAR,HAZY) Urine pH 5.5 (5.0-8.0) Urine Specific [place] 1.010 (1.003-1.035) Urine Protein Negativemg/dL (NEG,TRACE) Urine Glucose (UA) Negativemg/dL (NEGATIVE) Urine Ketones Negativemg/dL (NEGATIVE) Urine Occult Blood Negative (NEGATIVE) Urine Nitrite Negative (NEGATIVE) Urine Bilirubin Negative (NEGATIVE) Urine Urobilinogen Normalmg/dL (NORMAL) Urine Leukocyte Esterase Negative (NEGATIVE) Urine RBC 0-2/hpf (0-2) Urine WBC 0-5/hpf (0-5) Urine Epithelial Cells Few/hpf (NONE-MOD) Urine Crystals None seen (NONE SEEN) Urine Bacteria Few/hpf (NONE-FEW) Urine Hyaline Casts None/lpf (NONE) Urine Granular Casts None seen (NONE SEEN) Urine Waxy Casts None seen (NONE SEEN) Urine Red Blood Cell Casts None seen (NONE SEEN) Urine White Blood Cell Casts None seen (NONE SEEN) Urine Mucus None seen (None Seen) Urine Trichomonas None seen (NONE SEEN) Urine Yeast None (NONE SEEN) Urinalysis Comment None Urine Culture Reflexed Not indicated Urine Opiates Screen Negative Urine Methadone Screen Negative Urine Barbiturates Screen Negative Urine Amphetamines Screen Negative Urine Benzodiazepines Screen Negative Urine Cocaine Metabolite Screen Negative Urine Cannabinoids Screen Negative Troponin T 0.010ug/L (0.0-0.011) C-Reactive Protein 0.4mg/dL (0.0-0.5) X-Ray Chest Interpretation Chest Xray Interpretation: IMPRESSION: No acute pulmonary process. Dictated by: Brittney Ritchie M.D. on 05/01/2017 at 20:26 View: Portable, 1 view Interpretation / Wet Read by: Interpret - Radiologist CT Head Interpretation IMPRESSION: 1. There is a persistent appearance of enlarged ventricles out of proportion to gyral and sulcal atrophy. Overall appearance has not appreciably changed compared to prior exam. 2. Minimal atrophy and chronic microvascular ischemic changes. Dictated by: Brittney Ritchie M.D. on 05/01/2017 at 18:10 Study: Head CT no contrast Interpretation / Wet Read by: Interpret - Radiologist Re-Eval/Medical Decision Med Decision/Clinical Course I am not sure why Mr. Lea is so nauseous and lethargic. He does not have clinical meningitis. His CAT scan does not show worsening of his hydrocephalus. Laboratory work is reassuring and there is no good answer there. I consulted with Dr. Leone who was not comfortable with me discharging him back to [facility]. I do think it reasonable to admit him for MRI and close observation. Source of Hx: Old records Re-Evaluation/Progress : Time of Eval: 01:18 Re-Evaluation/Progress Note: Pt rechecked. Informed pt of plan for admission. Pt understands and agrees with plan for admission. All questions were answered. Consultation #1: Call Returned at: 21:03 Compensation And Benefits Manager: Agrees with eval, Agrees with plan Note: Consult with Dr. Stock at [facility]. Discussed pt's case. He agrees with plan. Consultation #2: Referral / Consult Name: Asa Bonner MD Consulted With: Hospitalist Call Returned at: 01:18 Compensation And Benefits Manager: Will see patient, Agrees with eval, Agrees with plan, Accepts admit Counseled Regarding: Diagnosis, Lab results, Need for admission Discharge & Departure Impression: Primary Impression: Altered mental status, unspecified Disposition: ADMITTED TO HOSPITAL Discharge Condition All VS Reviewed: Yes Condition: Stable Referrals: Brody Borjas MD (PCP) Scribe Attestation Portions of this note were transcribed by Anne-Marie Ace. I, Dr. Walls personally performed the history, physical exam and medical decision-making; I reviewed and confirmed the accuracy of the information in the transcribed note. Signed by : Schuyler Donohue, 05/01/17 and 20:50. copies to: Brody Borjas MD, Todd P DO May 01, 2017 18:04 Anne-Marie Romano May 01, 2017 18:36
--- NOTE | 2017-05-01 18:14 | DRSVH ---
PROCEDURE: CT BRAIN WITHOUT CONTRAST ([id number]) INDICATIONS: headache, vomiting h/o hydrocephalus TECHNIQUE: Noncontrast 4.5 mm thick angled axial sections acquired from the foramen magnum to the vertex, with c oronal reformats. COMPARISON: [facility], CT, BRAIN W/O CONTRAST, 03/27/2013, 11:54. FINDINGS: Image quality: Excellent. CSF spaces: Basal cisterns are patent. No extra-axial fluid collections. The ventricles are promin ent bilaterally without interval change. Brain: No intracranial bleeds or masses. There is cerebral volume loss for age, with resultant vent ricular and sulcal prominence. There are periventricular and deep white matter chronic small vessel ischemic changes. There is intracranial internal carotid artery atherosclerosis. Skull and face: Calvarium and visualized facial bones appear intact, without suspicious lesions. Sinuses: Visualized sinuses and mastoids are clear. IMPRESSION: 1. There is a persistent appearance of enlarged ventricles out of proportion to gyral and sulcal atro phy. Overall appearance has not appreciably changed compared to prior exam. 2. Minimal atrophy and chronic microvascular ischemic changes. Dictated by: Brittney Ritchie M.D. on 05/01/2017 at 18:10 Approved by: Brittney Ritchie M.D. on 05/01/2017 at 18:12
[2017-05-01 19:33] VITALS: BP 147/105; PULSE 65; RESP 22; O2SAT 95
--- NOTE | 2017-05-01 20:28 | DRSVH ---
PROCEDURE: X-RAY CHEST ONE VIEW, PORTABLE ([id number]) INDICATIONS: cough TECHNIQUE: One view of the chest was acquired. COMPARISON: [facility], CR, CHEST 1VW (PORTABLE), 03/26/2013, 22:24. [facility], CR, XR CHEST 1VW (PORTABLE), 04/12/2017, 10:10. FINDINGS: Surgical changes and devices: None. Lungs and pleura: No pleural effusions or pneumothorax. Lungs are clear. Mediastinum: Mediastinal contours appear normal. Heart size is normal. Bones and chest wall: No suspicious bony lesions. Overlying soft tissues appear unremarkable. IMPRESSION: No acute pulmonary process. Dictated by: Brittney Ritchie M.D. on 05/01/2017 at 20:26 Approved by: Brittney Ritchie M.D. on 05/01/2017 at 20:26
[2017-05-01 21:03] LABS: COLOR,URINE YELLOW (YELLOW)
[2017-05-01 21:04] LABS: APPEARANCE,URINE CLEAR (CLEAR,HAZY); OCCULT BLOOD,URINE NEGATIVE (NEGATIVE); PH,URINE 5.5 (5.0-8.0); UROBILINOGEN,URINE NORMAL (NORMAL)
[2017-05-02] VITALS (11 sets, daily range): BP systolic 111–159; BP diastolic 63–98; PULSE 59–87; RESP 16–22; O2SAT 91–99
[2017-05-02] MEDS ORDERED: 0.9% Sodium Chloride 1,000 ML IV ONE (00:55)
[2017-05-02] MEDS ORDERED: Iohexol 300 mg/mL 30 mL Inj PO ONE (00:55)
[2017-05-02] MEDS ORDERED: Polyethylene Glycol (PEG) 17 Gm Powder PO PRN (01:00)
[2017-05-02] MEDS ORDERED: Ondansetron 2 mg/mL 2 mL Inj IVPUSH PRN (01:00)
[2017-05-02] MEDS ORDERED: HYDROcodone-APAP 5-325 mg Tablet PO PRN (01:00)
[2017-05-02] MEDS: 0.9% Sodium Chloride 1,000 ML IV SCH ×2 (01:00→11:18)
[2017-05-02] MEDS ORDERED: Alum-Mag Hydrox-Simeth 30 mL Suspension PO PRN (01:00)
[2017-05-02] MEDS ORDERED: Fluticasone 0.05% 15 Spray/2 Gm 16 Gm Nasal Spray NOSTRIL PRN (01:10)
[2017-05-02] MEDS ORDERED: Iohexol 240 mg/mL 10 mL Inj PO ONE (01:20)
--- NOTE | 2017-05-02 01:59 | PCM.HPMED ---
Subjective Date of Service May 02, 2017 Primary Provider: Admitting Physician: Primary Care Physician: Brody Borjas MD Attending Physician: Chief Complaint: nausea, Headache History of Present Illness: 66 yo M with history of DM2, HTN, HLD, and chronic hydrocephalus who presented to the ED from SNF for concerns of nausea, CHAVEZ, and lethargy. Per report, patient was discharged from this hospital to SNF 2 weeks ago for pneumonia. In the past day patient has been complaining of increasing nausea, mild headache, and decreased energy. With his history of hydrocephalus, there was concern of worsening. Patient is a poor historian, but did state that his nausea is associated with food intake and is associated with abdominal pain. He denies any fevers, SOB, CP, or cough. His abdominal pain is somewhat generalized, but much worse in the LLQ. He has not noticed any constipation or diarrhea and reports his last BM was today. He is morbidly obese and mostly bed bound due to gait issues from his hydrocephalus and general deconditioning. He was recently admitted at this hospital for community acquired pneumonia and discharge to SNF due to severe deconditioning. In the ED he was afebrile with normal stable vital signs His CBC CMP UA toxicology were all negative for benign except for an ESR of 79 This initial chest x-ray was benign and his brain CT did not show any appreciable change in his hydrocephalus Due to his intractable nausea and abdominal pain on examination, patient is admitted for further observation Review of Systems: Comprehensive review of systems was conducted with the patient and found to be negative except as noted above in HPI. Allergies Coded Allergies: No Known Allergies (Verified , 05/02/17) Home Medications From last discharge summary Discharge Medications Acarbose (Acarbose) 50 Mg Tablet 50 MG PO TIDWM (Reported) Alfuzosin ER (Alfuzosin ER) 10 Mg Tab.er.24h 10 MG PO DAILY (Reported) Aspirin (Aspirin) 325 Mg Tablet 325 MG PO DAILY (Reported) Atorvastatin Calcium (Atorvastatin Calcium) 80 Mg Tablet 80 MG PO DAILY ( Reported) Cefuroxime Axetil (Cefuroxime) 500 Mg Tablet 500 MG PO BID Prescribed by: MAYA ARNOLD MD Glipizide ER (Glipizide ER) 10 Mg Tab.er.24 10 MG PO QAM (Reported) Metformin (Glucophage) 1,000 Mg Tablet 1,000 MG PO BID (Reported) Metoprolol Tartrate (Metoprolol Tartrate) 50 Mg Tablet 50 MG PO BID (Reported) Oxybutynin Chloride (Oxybutynin Chloride) 5 Mg Tablet 5 MG PO BID (Reported) Sertraline HCl (Sertraline) 50 Mg Tablet 50 MG PO DAILY (Reported) As needed Albuterol HFA (Proair HFA) 8.5 Gm Hfa.aer.ad 2 PUFFS INHALATION Q4H PRN PRN For Shortness of Breath (Reported) Fluticasone Propionate (Fluticasone Propionate Nasal) 16 Gm Mckinney.susp 2 SPRAY NS DAILY PRN PRN For Congestion (Reported) Furosemide (Furosemide) 40 Mg Tablet 40 MG PO QAM PRN PRN edema (Reported) Potassium Chloride (Potassium Chloride) 10 Meq Capsule.er 10 MEQ PO QAM PRN PRN w/lasix (Reported) PMH Chronic hydrocephalus Type II diabetes mellitus Hypertension Hyperlipidemia Obstructive sleep apnea on CPAP CAD status post PCI in 2003, stent in LAD and PDA Surgical History Denies any surgical history Family History Extensive family history of diabetes Social History Hx Alcohol Use: No Hx Substance Use: No Hx Tobacco Use: Yes (HX 2 PPD FOR 35 YEARS but quit in 2003) Smoking Status: Former Smoker Living Arrangement: [facility] Exam Vital Signs Vital Sign - Last Date Time Temp Pulse Resp B/P Pulse Ox O2 Delivery O2 Flow Rate FiO2 05/01/17 19:33 36.8 65 22 147/105 95 Room Air Exam General: Morbidly obese male who appears mildly lethargic and in mild pain and distress HEENT: Normocephalic, atraumatic. External ears without defect. PERRLA, EOMI. Anicteric sclerae, moist conjunctivae, and no lid lag. Oropharynx moist and pink Neck: Supple with full range of motion. No jugular venous distension. Cardiovascular: Regular rate and rhythm with soft systolic murmur Pulmonary: Clear to auscultation bilaterally with no crackles, wheezes, or rhonchi. Normal respiratory effort with no use of accessory muscles. Abdomen: Very obese abdomen, soft, and nondistended, moderately tender to palpation in the left lower quadrant with mild voluntary guarding, no rebound, no rashes noted Extremities: No clubbing, cyanosis, edema, or lymphadenopathy appreciated. Skin: Normal temperature, turgor, and texture; no rash, ulcers, or subcutaneous nodules appreciated. Neurological: Muscle strength grossly intact and equal, no focal weakness, face symmetric, no tremors noted Psychiatric: Normal mood and affect. Alert and oriented to person, place, and time. Cooperative and pleasant Lab and Diagnostics Result Diagram: 05/01/17 17105/01/17 171 X-Rays, CTs and MRIs X-Ray Chest Interpretation Chest Xray Interpretation: IMPRESSION: No acute pulmonary process. Dictated by: Birttney Ritchie M.D. on 05/01/2017 at 20:26 View: Portable, 1 view Interpretation / Wet Read by: Interpret - Radiologist CT Head Interpretation IMPRESSION: 1. There is a persistent appearance of enlarged ventricles out of proportion to gyral and sulcal atrophy. Overall appearance has not appreciably changed compared to prior exam. 2. Minimal atrophy and chronic microvascular ischemic changes. Dictated by: Brittney Ritchie M.D. on 05/01/2017 at 18:10 Study: Head CT no contrast Interpretation / Wet Read by: Interpret - Radiologist Assessment & Plan 66 yo M with history of DM2, HTN, HLD, and chronic hydrocephalus who presented to the ED from SNF for concerns of nausea, CHAVEZ, and lethargy. Admitted for observation of his nausea and abdominal pain Intractable nausea with left lower quadrant abdominal pain, POA Uncertain of etiology of patient's pain and nausea. Patient did have a colonoscopy in 2012 for a thickened sigmoid colon segment. Colonoscopy did not reveal any etiology. With this history and severity of symptoms, we will pursue CT of his abdomen and pelvis to evaluate for perhaps colitis or obstruction ESR was moderately elevated on admission, but lactic and crp were normal. Will trial thin liquid diet and advance as tolerated. IV NS at 100cc/hr while having poor PO intake Anti-emetics as needed for nausea Chronic hydrocephalus, POA Patient's presenting symptoms was worrisome for progression of his hydrocephalus , but brain CT did not show any appreciable changes Pt was noted by ED to be somewhat obtunded on presentation, but was A&O during my examination. We will continue to monitor with frequent neuro checks. If mentation worsens again, consider MRI of brain Type II diabetes mellitus, POA Stable, last A1c was 8.3 in March We will hold patient's metformin and glipizide due to imaging Placed on high-dose lispro correctional scale CAD status post PCI, POA Stable, no anginal symptoms, initial troponin negative We will place on telemetry for CV monitoring We will continue patient's home medications: Metoprolol, aspirin Essential hypertension, POA Stable, we will continue his home medications Hyperlipidemia, POA We will continue his home atorvastatin BMI 42.9 Will require bariatric bed Tylenol as needed for fever Zofran as needed for nausea Bowel regimen as needed for constipation CODE STATUS: Full resuscitation Patient is admitted under observation status with expected length of stay less than 2 midnights due to severity of presenting symptoms, risk of adverse event, and complexity of treatment plan. Pain Evaluation: Pain not Controlled VTE Prophylaxis: Sub-Q Heparin (Unfractionated) Resuscitation Status: CPR: Attempt Resuscitation Attending Statement The patient was seen and examined together with Dr. Baldwin on 05/02 and I agree with the history, exam and plan as outlined in the note above. Van Baldwin DO May 02, 2017 01:12 Asa Bonner MD May 02, 2017 19:21
[2017-05-02] MEDS ORDERED: Albuterol 2.5 mg/3 mL Inhalation Solution NEB PRN (02:00)
--- NOTE | 2017-05-02 03:41 | NUR ---
Admit: Pt arrived around 0150 from ED via stretcher; no family at bedside. Pt AOx3, tele placed SR, placed on 2 L O2 with cont pulse ox while sleeping. Pt states he is incontinent and mostly non ambulatory. Currently working with PT at [facility] and states he can stand and pivot with 2 asst; recent glf within last three months; bed alarm on. Admit questions complete. Pt pleasant and cooperative with care.
[2017-05-02] MEDS: Nystatin 100,000 Unit/Gm 15 Gm Powder TOPICAL SCH ×3 (04:50→21:27)
[2017-05-02 07:00] LABS: BASOPHILS % (AUTO) 0.9 % (0-3); EOSINOPHILS % (AUTO) 2.4 % (0-5); MONOCYTES % (AUTO) 7.5 % (4-12); Mean Corpuscular Hemoglobin 29.6 pg (27.0-35.0); Mean Corpuscular Volume 88.2 fL (81-100); NEUTROPHILS % (AUTO) 65.7 % (40-74); Platelet Count 179 bil/L (150-400)
[2017-05-02] MEDS ORDERED: Glucose 40% Oral Gel 15 Gm Tube PO PRN (07:35)
[2017-05-02] MEDS: Insulin LISPRO 300 Unit/3 mL Inj SUBQ SCH ×4 (08:00→21:38)
--- NOTE | 2017-05-02 08:21 | DRSVH ---
PROCEDURE: CT ABDOMEN AND PELVIS WITH CONTRAST ([id number]) INDICATIONS: LLQ abd pain with nausea TECHNIQUE: After the administration of intravenous contrast, 5 mm thick sections acquired from the diaphragm to the symphysis. 5 mm coronal and sagittal reformats were acquired. For radiation dose reduction, the following was used: automated exposure control, adjustment of mA and/or kV according to patient siz e. COMPARISON: CT C. AP 03/29/2013 FINDINGS: Image quality: Excellent. ABDOMEN: Lung bases: Lung bases are clear. The levesl of previously demonstrated left thyroid mass and abnorm ally enlarged left superior mediastinal lymph node are not included in current study. Heart size is n ormal. No hiatal hernia. Solid organs: Liver and spleen are normal in size and enhancement. Intrahepatic hypodensities, large st in the left lobe near the gallbladder fossa measuring 3.4 cm and showing water attenuation are lik jemima cysts and unchanged. Gallbladder appears normal. Biliary system is non dilated. Pancreas enhanc es normally. There is thickening and mild nodularity of both adrenal glands, including a 1 cm rounded area in the anterior, medial left lobe, suspect for adrenal nodules but unchanged. Kidneys demonstra te normal size and enhancement, without hydronephrosis. Indeterminate hypodensity in the anterior cor spring of the left kidney is unchanged. Peritoneum and bowel: Bowel loops demonstrate normal wall thickness and caliber. Normal appendix. Di stal colon shows no inflammatory disease or focal wall thickening. No free fluid or air. Nodes and vessels: No retroperitoneal or mesenteric adenopathy by size criteria. Aorta and inferior vena cava are normal in size. There is aneurysmal dilatation of the left common iliac artery at 2.7 cm, exceeding the threshold of 2.5 cm. Miscellaneous: Small fat filled umbilical hernia. PELVIS: Genitourinary: Bladder wall thickness is normal. Mild prostate enlargement. Miscellaneous: No inguinal hernias or adenopathy. Bones: No suspicious bony lesions. No vertebral body compression fractures. IMPRESSION: 1. No specific abnormality to correlate with left lower quadrant pain. No bowel obstruction or inflam matory bowel disease. Normal appendix. 2. Intrahepatic and left renal hypodensities again likely representing simple cysts. 3. 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 4. Stable nodularity both adrenal glands, left greater than right. Findings are concordant with the preliminary report. Dictated by: Cleveland Lynn M.D. on 05/02/2017 at 8:06 Approved by: Cleveland Lynn M.D. on 05/02/2017 at 8:19
[2017-05-02] MEDS: Heparin 5,000 Unit/mL Inj SUBQ SCH ×2 (09:27→16:30)
--- NOTE | 2017-05-02 12:28 | NUR ---
Case Management: YRN given and explained to pt. Kate RUIZRN
--- NOTE | 2017-05-02 17:56 | NUR ---
Nausea/Advanced Diet Pt. stated having nausea and PRN zofran was given IV. After reassessment Pt. states it seemed most of the nausea feeling out, but still has some lingering feeling of nausea left. Pt. tolerated clear liquids well and was advanced to heart healthy/ADA diet for dinner. Will continue to monitor.
[2017-05-03] VITALS (10 sets, daily range): BP systolic 100–129; BP diastolic 64–76; PULSE 56–90; RESP 16–22; O2SAT 90–99
[2017-05-03] MEDS: Heparin 5,000 Unit/mL Inj SUBQ SCH ×3 (02:58→16:44)
[2017-05-03] MEDS: 0.9% Sodium Chloride 1,000 ML IV SCH ×3 (02:59→22:51)
--- NOTE | 2017-05-03 03:23 | NUR ---
Breathing/O2/BG Patient refuses to use oxygen throughout the shift. Patient instructed to breath deep and cough. Pulse oximeter re-applied. Patients blood glucose level was 187 at 2200 and patient stated this was extremely elevated for him. VSS. Call light within reach. Care continues.
[2017-05-03] MEDS: Insulin LISPRO 300 Unit/3 mL Inj SUBQ SCH ×4 (08:00→22:00)
--- NOTE | 2017-05-03 08:09 | NUR ---
Oxygen Pt noted to be 77-85% on RA per CPOx with initial assessment. Pt with hx JOCELYN with CPAP. Per report, pt refused NC overnight. Pt stirred awake with placing NC - slightly agitated but did not object; fell back asleep. Started at 2L with O2 to 89%, 3L at 90%, increase to 4L - sats to 95%. Reevaluate when awake. Care continues. Addendum: 05/03/17 at 1705 by VERONICA STEIN RN Pt awake and alert this afternoon post bedbath by [employer]. Conversing with staff and assisting with care. O2 currently at 2L NC we sats 95%. CPOx remains in place. Plan for bipap/cpap this evening - to be set up by RT. RT aware. Care continues.
[2017-05-03] MEDS: Nystatin 100,000 Unit/Gm 15 Gm Powder TOPICAL SCH ×2 (08:16→19:54)
[2017-05-03 11:39] LABS: BASOPHILS % (AUTO) 0.7 % (0-3); EOSINOPHILS % (AUTO) 2.7 % (0-5); MONOCYTES % (AUTO) 6.9 % (4-12); Mean Corpuscular Hemoglobin 29.2 pg (27.0-35.0); NEUTROPHILS % (AUTO) 57.2 % (40-74); Platelet Count 128 bil/L (150-400)
--- NOTE | 2017-05-03 15:07 | PCM.PNMED ---
Subjective Date of Service May 03, 2017 Subjective Patient had multiple episodes of desaturation on pulse oximetry overnight. Patient uses CPAP at night however did not bring his own and refused to allow nursing to apply nasal cannula initially. Patient did eventually wear nasal cannula. She says she was very tired this morning's sleep last night was more alert the afternoon Exam Vital Signs Vital Sign - Last Date Time Temp Pulse Resp B/P Pulse Ox O2 Delivery O2 Flow Rate FiO2 05/03/17 13:06 36.5 60 20 103/64 96 Nasal Cannula 2.00 Intake and Output 05/02/17 05/02/17 05/03/17 Cumulative From/Thru 15:00 23:00 07:00 05/01/17 16:20 - 05/03/17 06:33 Intake Total 1200 ml 400 ml 2700 ml Output Total 686 ml 686 ml Balance 514 ml 400 ml 2014 ml Intake Oral 1200 ml 400 ml 1700 ml IV Total 1000 ml Output Urine Total 686 ml 686 ml # Voids 1 2 # Bowel Movements 0 Exam Gen: Morbidly obese male, sleepy but arousable and answers questions. AOx3. NAD, HEENT: NCAT, PERRLA, EOMI, MMM, sclera anicteric. Neck: Soft, supple, symmetrical, no thyromegaly/JVD/LAD. Resp: CTAB, no R/R/W. CV: RRR, nl S1/S2, no M/R/G, Abd: Obese, Soft, (+) BS, no guarding/rebound/organomegaly. Ext: +PP, -edema Skin: warm/dry/intact Neuro/Psych: No focal deficits, CN II-XII grossly intact. AAOx3, cooperative , appropriate mood/affect. IVs and Medications Medications Reviewed: Medications were reviewed in detail Lab and Diagnostics Result Diagram: 05/03/17 1112 05/03/17 1112 X-Rays, CTs and MRIs X-Ray Chest Interpretation Chest Xray Interpretation: IMPRESSION: No acute pulmonary process. Dictated by: Brittney Ritchie M.D. on 05/01/2017 at 20:26 View: Portable, 1 view Interpretation / Wet Read by: Interpret - Radiologist CT Head Interpretation IMPRESSION: 1. There is a persistent appearance of enlarged ventricles out of proportion to gyral and sulcal atrophy. Overall appearance has not appreciably changed compared to prior exam. 2. Minimal atrophy and chronic microvascular ischemic changes. Dictated by: Brittney Ritchie M.D. on 05/01/2017 at 18:10 Study: Head CT no contrast Interpretation / Wet Read by: Interpret - Radiologist CT ABDOMEN AND PELVIS WITH CONTRAST 1. No specific abnormality to correlate with left lower quadrant pain. No bowel obstruction or inflammatory bowel disease. Normal appendix. 2. Intrahepatic and left renal hypodensities again likely representing simple cysts. 3. 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 4. Stable nodularity both adrenal glands, left greater than right. Assessment & Plan 66 yo M with history of DM2, HTN, HLD, and chronic hydrocephalus who presented to the ED from SNF for concerns of nausea, CHAVEZ, and lethargy. Admitted for observation of his nausea and abdominal pain #Intractable nausea with left lower quadrant abdominal pain, POA. Resolved. Unclear etiology of pain or nausea. Patient did well with antiemetics. Patient did have a colonoscopy in 2012 for a thickened sigmoid colon segment. CT of the abdomen ruled out bowel obstruction or inflammatory bowel disease. -ESR was moderately elevated on admission, but lactic and crp were normal. -Patient initially started on thin liquid diet is advanced to heart healthy cardiac diet. Tolerated well. - Patient was given IV fluids initially currently euvolemic - We will continue with antiemetics on discharge as nausea is well controlled at the moment. #Chronic hydrocephalus, POA, chronic issue. Patient's presenting symptoms was worrisome for progression of his hydrocephalus. Patient does not history of urinary incontinence at baseline so difficult to use as distinguishing feature of worsening hydrocephalus. Patient chronically is slow to respond and lethargic per history. He was more altered than his usual baseline. CT of the head was performed with just show enlarged ventricles consistent with hydrocephalus however compared prior exam was not significantly different. MRI of the brain was initially ordered due to altered mental status on presentation however patient was too large for machine. -Patient's mentation improved significantly during admission therefore MRI is deemed to be unnecessary. -He appears to be back to baseline which is still slightly slow to answer questions but alert and oriented 3. -Patient has a plan to get a shunt surgery as outpatient and will follow up with his PCP and surgery accordingly upon discharge. #Severe obstructive sleep apnea- patient usually wears CPAP at did not bring mask with him. Last night patient had episodes of desaturations on pulse ox when off oxygen. Patient has agreed to use CPAP provided by [facility]. #Morbid obesity- BMI 42.9. Will require bariatric bed. #Type II diabetes mellitus, POA. Stable, last A1c was 8.3 in March -We will hold patient's metformin and glipizide. -Placed on high-dose lispro correctional scale -Lock sugars in the 120s #CAD status post PCI, POA -Stable, no anginal symptoms, initial troponin negative -We will place on telemetry for CV monitoring -We will continue patient's home medications: Metoprolol, aspirin #Essential hypertension, POA -Stable, we will continue his home medications #Hyperlipidemia, POA -We will continue his home atorvastatin Tylenol as needed for fever Zofran as needed for nausea Bowel regimen as needed for constipation CODE STATUS: Full resuscitation Patient is admitted under observation status with expected length of stay less than 2 midnights due to severity of presenting symptoms, risk of adverse event, and complexity of treatment plan. Pain Evaluation: Adequate Pain Control GI Prophylaxis: Other VTE Prophylaxis: Sub-Q Heparin (Unfractionated) VTE Mechanical Devices: Intermittant Pneumatic CD, Venous Foot Pump Resuscitation Status: CPR: Attempt Resuscitation Cecil Robles MD May 03, 2017 15:07
--- NOTE | 2017-05-03 15:56 | NUR ---
Social Work- Initial Assessment/Readiness for Discharge/Multidisciplinary Rounds Data: See Initial Assessment. Pt is a 66 year old male admitted 05/02/17 for Altered Mental Status. Pt's insurance is [employer]. Pt's PCP is Brody Borjas MD. Pt's NOK and identified support person is his neighbor [place] [phone]. Pt's readmit risk score is not listed. Per multidisciplinary rounds, pt will likely return to [facility] tomorrow. No additional needs identified in rounds. SW met with pt at bedside regarding discharge plan, SW role explained. Pt alert and oriented x3. Pt's capacity for self-care assessed. Pt is currently residing at [facility] for a short term stay for skilled RN and PT. Pt also has an apartment in [place] where he lives alone independently. Pt uses a walker at baseline and does not drive any longer. Pt has no HH history. Pt has no other SNF history besides [facility]. Pt has history at an [facility] for four months in the past. Pt has no LTC or VA benefits. Pt's identified support person is his neighbor [place] [phone]. Pt has no DPOA and declined information regarding this at bedside. Pt is agreeable to returning to [facility] to resume his skilled therapies. T/C to Roselyn at [facility] regarding pt and Roselyn is agreeable to pt returning. Pt will require bariatric wheelchair at transport. No concerns related to pt's capacity for self-care at this time as pt is returning to SNF where he will receive the care he needs. Paperwork in pt's chart. SW will continue to follow. Assessment: Pt for whom SNF continues to be medically necessary Plan: Pt to discharge to [facility] when medically ready. No concerns related to pt's capacity for self-care at this time as pt is returning to SNF where he will receive the care he needs. Paperwork in pt's chart. SW will continue to follow. ERICA Holman Addendum: 05/03/17 at 1602 by KEITH ANNE Amended: Links added.
[2017-05-04 00:10] VITALS: BP 114/71; PULSE 60; RESP 20; O2SAT 94
[2017-05-04] MEDS: Heparin 5,000 Unit/mL Inj SUBQ SCH ×2 (01:02→07:56)
[2017-05-04 05:16] VITALS: PULSE 73
--- NOTE | 2017-05-04 05:23 | NUR ---
CPAP / oxygenation Hospital CPAP in use through night with 4-5 L O2 bleed in to keep sats>88%. Pt continues to drop into mid-80s occassionally then rebound to mid 90s O2 sats. Has been able to wake fairly easily and remained alert once awake, some responses delayed. Able to assist with all care and turns well in bed. Has not been out of bed this shift related to wish to sleep tonight, discussed importance of moving to chair in daytime. Hourly rounding ongoing.
[2017-05-04 06:10] VITALS: BP 148/78; PULSE 62; RESP 20; O2SAT 95
[2017-05-04] MEDS: Insulin LISPRO 300 Unit/3 mL Inj SUBQ SCH ×2 (07:52→12:00)
[2017-05-04] MEDS: 0.9% Sodium Chloride 1,000 ML IV SCH ×2 (07:57→12:56)
[2017-05-04] MEDS: Nystatin 100,000 Unit/Gm 15 Gm Powder TOPICAL SCH (07:57)
[2017-05-04 08:00] VITALS: PULSE 65
[2017-05-04 08:06] VITALS: BP 162/90; PULSE 62; RESP 20; O2SAT 93
--- NOTE | 2017-05-04 11:29 | PCM.PNMED ---
Subjective Date of Service May 04, 2017 Subjective Patient says he is more rested today. Feels alert. Not requiring oxygen. He only wore CPAP part of the night as he did not like the machine. Exam Vital Signs Vital Sign - Last Date Time Temp Pulse Resp B/P Pulse Ox O2 Delivery O2 Flow Rate FiO2 05/04/17 08:37 36.7 05/04/17 08:09 Supplement Oxygen CPAP/BIPAP 05/04/17 08:06 62 20 162/90 93 2.00 Intake and Output 05/03/17 05/03/17 05/04/17 Cumulative From/Thru 15:00 23:00 07:00 05/01/17 16:20 - 05/04/17 05:43 Intake Total 2690 ml 809 ml 6199 ml Output Total 428 ml 1114 ml Balance 2262 ml 809 ml 5085 ml Intake Oral 630 ml 2330 ml IV Total 2060 ml 809 ml 3869 ml Output Urine Total 428 ml 1114 ml # Voids 2 # Bowel Movements 0 Exam Gen: Morbidly obese male, much more alert today. Not on oxygen. HEENT: NCAT, PERRLA, EOMI, MMM, sclera anicteric. Neck: Soft, supple, symmetrical, no thyromegaly/JVD/LAD. Resp: CTAB, no R/R/W. CV: RRR, nl S1/S2, no M/R/G, Abd: Obese, Soft, (+) BS, no guarding/rebound/organomegaly. Ext: +PP, -edema Skin: warm/dry/intact Neuro/Psych: No focal deficits, CN II-XII grossly intact. AAOx3, cooperative , appropriate mood/affect. IVs and Medications Medications Reviewed: Medications were reviewed in detail Lab and Diagnostics Result Diagram: 05/03/17 1112 05/03/17 1112 X-Rays, CTs and MRIs X-Ray Chest Interpretation Chest Xray Interpretation: IMPRESSION: No acute pulmonary process. Dictated by: Brittney Ritchie M.D. on 05/01/2017 at 20:26 View: Portable, 1 view Interpretation / Wet Read by: Interpret - Radiologist CT Head Interpretation IMPRESSION: 1. There is a persistent appearance of enlarged ventricles out of proportion to gyral and sulcal atrophy. Overall appearance has not appreciably changed compared to prior exam. 2. Minimal atrophy and chronic microvascular ischemic changes. Dictated by: Brittney Ritchie M.D. on 05/01/2017 at 18:10 Study: Head CT no contrast Interpretation / Wet Read by: Interpret - Radiologist CT ABDOMEN AND PELVIS WITH CONTRAST 1. No specific abnormality to correlate with left lower quadrant pain. No bowel obstruction or inflammatory bowel disease. Normal appendix. 2. Intrahepatic and left renal hypodensities again likely representing simple cysts. 3. 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 4. Stable nodularity both adrenal glands, left greater than right. Assessment & Plan 66 yo M with history of DM2, HTN, HLD, and chronic hydrocephalus who presented to the ED from SNF for concerns of nausea, CHAVEZ, and lethargy. Admitted for observation of his nausea and abdominal pain which has improved #Intractable nausea with left lower quadrant abdominal pain, POA. Resolved. Unclear etiology of pain or nausea. Patient did well with antiemetics. Patient did have a colonoscopy in 2012 for a thickened sigmoid colon segment. CT of the abdomen ruled out bowel obstruction or inflammatory bowel disease. -ESR was moderately elevated on admission, but lactic and crp were normal. -Patient initially started on thin liquid diet is advanced to heart healthy cardiac diet. Tolerated well. - Patient was given IV fluids initially currently euvolemic - We will continue with antiemetics on discharge as nausea is well controlled at the moment. -We will add Zofran to oral medications to take for nausea as tolerated. #Chronic hydrocephalus, POA, chronic issue. Patient's presenting symptoms was worrisome for progression of his hydrocephalus. Patient does not history of urinary incontinence at baseline so difficult to use as distinguishing feature of worsening hydrocephalus. Patient chronically is slow to respond and lethargic per history. He was more altered than his usual baseline. CT of the head was performed with just show enlarged ventricles consistent with hydrocephalus however compared prior exam was not significantly different. MRI of the brain was initially ordered due to altered mental status on presentation however patient was too large for machine. -Patient's mentation improved significantly during admission therefore MRI is deemed to be unnecessary. -Patient is alert and oriented 3 at baseline and not slow to answer. -It seems the patient is significantly more confused and lethargic after night but he does not wear her CPAP and staff should ensure that patient wear CPAP every night. -Patient has a plan to get a shunt surgery as outpatient and will follow up with his PCP and surgery accordingly upon discharge. Chronic Issues- #Severe obstructive sleep apnea- Chronic, active- patient usually wears CPAP at did not bring mask with him. Last night patient had episodes of desaturations on pulse ox when off oxygen. Patient has agreed to use CPAP provided by [facility]. #Morbid obesity- BMI 42.9. Will require bariatric bed. #Type II diabetes mellitus, Stable, last A1c was 8.3 in March -We will hold patient's metformin and glipizide. -Placed on high-dose lispro correctional scale -Lock sugars in the 120s #CAD status post PCI, stable. -Stable, no anginal symptoms, initial troponin negative -We will place on telemetry for CV monitoring -We will continue patient's home medications: Metoprolol, aspirin #Essential hypertension, stable. -Stable, we will continue his home medications #Hyperlipidemia, stable -We will continue his home atorvastatin Tylenol as needed for fever Zofran as needed for nausea Bowel regimen as needed for constipation Dispo- patient is medically cleared for discharge back to [facility] to complete his physical therapy and other guilt nursing requirements. -Patient should use CPAP nightly without exception to avoid morning lethargy. -Can resume physical therapy as tolerated. -We will add Zofran to oral medications to take for nausea . -Patient has a plan to get a shunt surgery as outpatient and will follow up with his PCP and surgery accordingly. Pain Evaluation: Adequate Pain Control GI Prophylaxis: Other VTE Prophylaxis: Sub-Q Heparin (Unfractionated) VTE Mechanical Devices: Intermittant Pneumatic CD Resuscitation Status: CPR: Attempt Resuscitation Cecil Robles MD May 04, 2017 11:29
[2017-05-04] MEDS ORDERED: ONDA4TAB6 PO (11:32)
--- NOTE | 2017-05-04 11:36 | PCM.DIMED ---
Discharge Instructions Date of Service May 04, 2017 Dates of Hospitalization May 02, 2017 at 02:08 Discharge Diagnosis Discharge Diagnosis #Chronic hydrocephalus, POA, chronic issue. #Intractable nausea with left lower quadrant abdominal pain, POA. Resolved. #Severe obstructive sleep apnea- Chronic, active #Morbid Morbid obesity #Type II diabetes mellitus #CAD status post PCI, stable. #Essential hypertension, stable. #Hyperlipidemia, stable Medication Instructions Additional med instructions -We will add Zofran to oral medications to take for nausea . Diet Discharge Diet: Heart Healthy, Diabetic Activity Discharge Activity: Other (Can resume physical therapy as tolerated) Patient Instructions Patient Instructions Use CPAP nightly without exception to avoid morning tiredness and lethargy. Follow-up plan Follow up with PCP and Surgery accordingly regarding previous plan by your PCP to get a shunt surgery as outpatient Follow-up Provider: Brody Borjas MD Follow-up with PCP in: 1 week Cecil Robles MD May 04, 2017 11:36
--- NOTE | 2017-05-04 11:38 | PCM.DC.MED ---
Discharge Summary Date of Service May 04, 2017 Dates of Hospitalization Date of Hospital Admission May 02, 2017 at 02:08 Date of Discharge: May 04, 2017 Providers: Admitting Physician: Asa Bonner MD Primary Care Physician: Brody Borjas MD Attending Physician: Sheela Robles MD Diagnosis at Time of Discharge Diagnosis at Time of Discharge #Chronic hydrocephalus, POA, chronic issue. #Intractable nausea with left lower quadrant abdominal pain, POA. Resolved. #Severe obstructive sleep apnea- Chronic, active #Morbid Morbid obesity #Type II diabetes mellitus #CAD status post PCI, stable. #Essential hypertension, stable. #Hyperlipidemia, stable Procedures XRay, CTs & MRIs X-Ray Chest Interpretation Chest Xray Interpretation: IMPRESSION: No acute pulmonary process. Dictated by: Brittney Ritchie M.D. on 05/01/2017 at 20:26 View: Portable, 1 view Interpretation / Wet Read by: Interpret - Radiologist CT Head Interpretation IMPRESSION: 1. There is a persistent appearance of enlarged ventricles out of proportion to gyral and sulcal atrophy. Overall appearance has not appreciably changed compared to prior exam. 2. Minimal atrophy and chronic microvascular ischemic changes. Dictated by: Brittney Ritchie M.D. on 05/01/2017 at 18:10 Study: Head CT no contrast Interpretation / Wet Read by: Interpret - Radiologist CT ABDOMEN AND PELVIS WITH CONTRAST 1. No specific abnormality to correlate with left lower quadrant pain. No bowel obstruction or inflammatory bowel disease. Normal appendix. 2. Intrahepatic and left renal hypodensities again likely representing simple cysts. 3. 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 4. Stable nodularity both adrenal glands, left greater than right. Brief History Per admission history of present illness 66 yo M with history of DM2, HTN, HLD, and chronic hydrocephalus who presented to the ED from SNF for concerns of nausea, CHAVEZ, and lethargy. Per report, patient was discharged from this hospital to SNF 2 weeks ago for pneumonia. In the past day patient has been complaining of increasing nausea, mild headache, and decreased energy. With his history of hydrocephalus, there was concern of worsening. Patient is a poor historian, but did state that his nausea is associated with food intake and is associated with abdominal pain. He denies any fevers, SOB, CP, or cough. His abdominal pain is somewhat generalized, but much worse in the LLQ. He has not noticed any constipation or diarrhea and reports his last BM was today. He is morbidly obese and mostly bed bound due to gait issues from his hydrocephalus and general deconditioning. He was recently admitted at this hospital for community acquired pneumonia and discharge to SNF due to severe deconditioning. In the ED he was afebrile with normal stable vital signs His CBC CMP UA toxicology were all negative for benign except for an ESR of 79 This initial chest x-ray was benign and his brain CT did not show any appreciable change in his hydrocephalus Due to his intractable nausea and abdominal pain on examination, patient is admitted for further observation Hospital Course 66 yo M with history of DM2, HTN, HLD, and chronic hydrocephalus who presented to the ED from SNF for concerns of nausea, CHAVEZ, and lethargy. Admitted for observation of his nausea and abdominal pain which has improved #Intractable nausea with left lower quadrant abdominal pain, POA. Resolved. Unclear etiology of pain or nausea. Patient did well with antiemetics. Patient did have a colonoscopy in 2012 for a thickened sigmoid colon segment. CT of the abdomen ruled out bowel obstruction or inflammatory bowel disease. -ESR was moderately elevated on admission, but lactic and crp were normal. -Patient initially started on thin liquid diet is advanced to heart healthy cardiac diet. Tolerated well. - Patient was given IV fluids initially currently euvolemic - We will continue with antiemetics on discharge as nausea is well controlled at the moment. -We will add Zofran to oral medications to take for nausea as tolerated. #Chronic hydrocephalus, POA, chronic issue. Patient's presenting symptoms was worrisome for progression of his hydrocephalus. Patient does not history of urinary incontinence at baseline so difficult to use as distinguishing feature of worsening hydrocephalus. Patient chronically is slow to respond and lethargic per history. He was more altered than his usual baseline. CT of the head was performed with just show enlarged ventricles consistent with hydrocephalus however compared prior exam was not significantly different. MRI of the brain was initially ordered due to altered mental status on presentation however patient was too large for machine. -Patient's mentation improved significantly during admission therefore MRI is deemed to be unnecessary. -Patient is alert and oriented 3 at baseline and not slow to answer. -It seems the patient is significantly more confused and lethargic after night but he does not wear her CPAP and staff should ensure that patient wear CPAP every night. -Patient has a plan to get a shunt surgery as outpatient and will follow up with his PCP and surgery accordingly upon discharge. Chronic Issues- #Severe obstructive sleep apnea- Chronic, active- patient usually wears CPAP at did not bring mask with him. Last night patient had episodes of desaturations on pulse ox when off oxygen. Patient has agreed to use CPAP provided by [facility]. #Morbid obesity- BMI 42.9. Will require bariatric bed. #Type II diabetes mellitus, Stable, last A1c was 8.3 in March -We will hold patient's metformin and glipizide. -Placed on high-dose lispro correctional scale -Lock sugars in the 120s #CAD status post PCI, stable. -Stable, no anginal symptoms, initial troponin negative -We will place on telemetry for CV monitoring -We will continue patient's home medications: Metoprolol, aspirin #Essential hypertension, stable. -Stable, we will continue his home medications #Hyperlipidemia, stable -We will continue his home atorvastatin Tylenol as needed for fever Zofran as needed for nausea Bowel regimen as needed for constipation Dispo- patient is medically cleared for discharge back to [facility] to complete his physical therapy and other guilt nursing requirements. -Patient should use CPAP nightly without exception to avoid morning lethargy. -Can resume physical therapy as tolerated. -We will add Zofran to oral medications to take for nausea . -Patient has a plan to get a shunt surgery as outpatient and will follow up with his PCP and surgery accordingly. Exam Vital Signs (Last) Date Time Temp Pulse Resp B/P Pulse Ox O2 Delivery O2 Flow Rate FiO2 05/04/17 08:37 36.7 05/04/17 08:09 Supplement Oxygen CPAP/BIPAP 05/04/17 08:06 62 20 162/90 93 2.00 Test 05/01/17 17:10 05/01/17 20:15 05/01/17 20:40 05/01/17 23:30 Erythrocyte Sedimentation Rate 79mm/hr (0-30) Total Bilirubin 0.5mg/dL (0.0-1.2) Aspartate Amino Transf (AST/SGOT) 20U/L (0-50) Alanine Aminotransferase (ALT/SGPT) 24U/L (0-44) Alkaline Phosphatase 114U/L (25-160) Total Protein 7.1g/dL (6.4-8.4) Albumin 3.8g/dL (3.4-5.0) Hold [place] Top Tube Received (Received) Ammonia 22ug/dL (18-53) Urine Color Yellow (YELLOW) Urine Appearance Clear (CLEAR,HAZY) Urine pH 5.5 (5.0-8.0) Urine Specific [place] 1.010 (1.003-1.035) Urine Protein Negativemg/dL (NEG,TRACE) Urine Glucose (UA) Negativemg/dL (NEGATIVE) Urine Ketones Negativemg/dL (NEGATIVE) Urine Occult Blood Negative (NEGATIVE) Urine Nitrite Negative (NEGATIVE) Urine Bilirubin Negative (NEGATIVE) Urine Urobilinogen Normalmg/dL (NORMAL) Urine Leukocyte Esterase Negative (NEGATIVE) Urine RBC 0-2/hpf (0-2) Urine WBC 0-5/hpf (0-5) Urine Epithelial Cells Few/hpf (NONE-MOD) Urine Crystals None seen (NONE SEEN) Urine Bacteria Few/hpf (NONE-FEW) Urine Hyaline Casts None/lpf (NONE) Urine Granular Casts None seen (NONE SEEN) Urine Waxy Casts None seen (NONE SEEN) Urine Red Blood Cell Casts None seen (NONE SEEN) Urine White Blood Cell Casts None seen (NONE SEEN) Urine Mucus None seen (None Seen) Urine Trichomonas None seen (NONE SEEN) Urine Yeast None (NONE SEEN) Urinalysis Comment None Urine Culture Reflexed Not indicated Urine Opiates Screen Negative Urine Methadone Screen Negative Urine Barbiturates Screen Negative Urine Amphetamines Screen Negative Urine Benzodiazepines Screen Negative Urine Cocaine Metabolite Screen Negative Urine Cannabinoids Screen Negative Troponin T 0.010ug/L (0.0-0.011) C-Reactive Protein 0.4mg/dL (0.0-0.5) Lipase 59U/L (13-60) Test 05/03/17 11:12 White Blood Count 6.9th/mm3 (3.8-10.1) Red Blood Count 4.86mil/mm3 (4.40-5.80) Hemoglobin 14.2g/dL (13.8-17.2) Hematocrit 45.2% (41.0-50.0) Mean Corpuscular Volume 93.0fL (81-100) Mean Corpuscular Hemoglobin 29.2pg (27.0-35.0) Mean Corpuscular Hemoglobin Concent 31.4% (32.0-37.0) Red Cell Distribution Width 13.6% (12.3-15.4) Platelet Count 128bil/L (150-400) Neutrophils (%) (Auto) 57.2% (40-74) Lymphocytes (%) (Auto) 32.2% (14-46) Monocytes (%) (Auto) 6.9% (4-12) Eosinophils (%) (Auto) 2.7% (0-5) Basophils (%) (Auto) 0.7% (0-3) Sodium Level 143mEq/L (134-144) Potassium Level 4.8mEq/L (3.5-5.2) Chloride Level 103mEq/L (97-108) Carbon Dioxide Level 27mmol/L (18-29) Blood Urea Nitrogen 12mg/dL (8-27) Creatinine 0.78mg/dL (0.76-1.27) Estimat Glomerular Filtration Rate 106mL/min (>59) Glucose Level 140mg/dL (60-99) Calcium Level 9.5mg/dL (8.5-10.1) Discharge Medications Discharge Medications Alfuzosin ER (Alfuzosin ER) 10 Mg Tab.er.24h 10 MG PO DAILY (Reported) Aspirin (Aspirin) 325 Mg Tablet 325 MG PO DAILY (Reported) Atorvastatin Calcium (Atorvastatin Calcium) 80 Mg Tablet 80 MG PO DAILY ( Reported) Glipizide ER (Glipizide ER) 10 Mg Tab.er.24 10 MG PO QAM (Reported) Metformin (Glucophage) 1,000 Mg Tablet 1,000 MG PO BID (Reported) Metoprolol Tartrate (Metoprolol Tartrate) 50 Mg Tablet 50 MG PO BID (Reported) Sertraline HCl (Sertraline) 50 Mg Tablet 50 MG PO DAILY (Reported) As needed Albuterol HFA (Proair HFA) 8.5 Gm Hfa.aer.ad 2 PUFFS INHALATION Q4H PRN PRN For Shortness of Breath (Reported) Fluticasone Propionate (Fluticasone Propionate Nasal) 16 Gm [place].susp 2 SPRAY NS DAILY PRN PRN For Congestion (Reported) Furosemide (Furosemide) 40 Mg Tablet 40 MG PO QAM PRN PRN edema (Reported) Ondansetron (Zofran) 4 Mg Tablet 4 MG PO Q4H PRN PRN For Nausea Prescribed by: SHEELA ROBLES MD Potassium Chloride (Potassium Chloride) 10 Meq Capsule.er 10 MEQ PO QAM PRN PRN w/lasix (Reported) Promethazine HCl (Phenergan) 25 Mg Supp.rect 25 MG RC q6hr PRN PRN For Nausea ( Reported) Additional med instructions -We will add Zofran to oral medications to take for nausea . Followup Plan Disposition: Going to [facility] complete physical therapy and for other [place] [facility] needs Follow-up plan Follow up with PCP and Surgery accordingly regarding previous plan by your PCP to get a shunt surgery as outpatient Discharge Diet: Heart Healthy, Diabetic Discharge Activity: Other (Can resume physical therapy as tolerated) Patient Instructions Use CPAP nightly without exception to avoid morning tiredness and lethargy. Follow-up Provider: Brody Borjas MD Follow-up with PCP in: 1 week Sheela Robles MD May 04, 2017 11:38
--- NOTE | 2017-05-04 12:06 | NUR ---
Social Work- Discharge/ Multidisciplinary Rounds Data: EMR reviewed. Pt is on day 2 of hospitalization under observation status for AMS. Per multidisciplinary rounds, pt is medically stable for discharge. T/C to [facility] regarding discharge. Roselyn is agreeable to discharge. SULEMA created packet and faxed orders. Paperwork is in pt's chart. Pt will require bariatric wheelchair and Roselyn is aware of this. Per Roselyn, Bariatric wheelchair is only available at 1545. RN updated of discharge time. SULEMA met with pt at bedside regarding discharge plan. Pt is agreeable to discharge today back to [facility]. Pt declined having [employer] contact his designated support person. Pt to discharge to [facility] via wheelchair van at 1545. Paperwork in chart. All updated and agreeable to plan. Assessment: Pt for whom resumption of SNF services is medically indicated . Plan: Pt to discharge to [facility] via wheelchair van at 1545. Paperwork in chart. RN, UC, pt and [facility] all updated and agreeable to plan. Ricarda Nolen, [employer]
[2017-05-04 12:15] VITALS: BP 159/70; PULSE 90; RESP 18; O2SAT 93
--- NOTE | 2017-05-04 15:49 | NUR ---
Discharge Pt discharged back to [facility]. A&O - answering appropriately, NAVYA, No c/o pain, IV dc'd intact, Tele removed, VSS - on RA, All personal belongings together in bag ready for DC. Report called to Roselyn of [facility] prior to dc at 1540. Await pickup - was scheduled for 1545. Case Management put together discharge packet. Hard copy script of Zofran in packet. CareNotes provided on dc dx and Zofran as it is new medication for pt. No questions/concerns left unanswered - ready for dc. Addendum: 05/04/17 at 1631 by VERONICA STEIN RN Pt picked up and transferred to [facility] via w/c at 1615; was SPT to w/c; belongings with transport team.
== END 2017-05-04 14:16 ==
LOC: SED 16:13 → EDUNIT# 16:13 → EDBD 16:13 → OSC 05-02 02:08
PROVIDERS: ADMIT Hospitalist; ATTEND Internal Medicine
DX: G91.9 Hydrocephalus, unspecified (principal); R11.0 Nausea; R51 Headache; R10.32 Left lower quadrant pain; E11.9 Type 2 diabetes mellitus without complications; E66.01 Morbid (severe) obesity due to excess calories; I10 Essential (primary) hypertension; E78.5 Hyperlipidemia, unspecified; G47.33 Obstructive sleep apnea (adult) (pediatric); I25.10 Atherosclerotic heart disease of native coronary artery without angina pectoris; Z98.61 Coronary angioplasty status; Z79.82 Long term (current) use of aspirin; Z79.84 Long term (current) use of oral hypoglycemic drugs; Z79.899 Other long term (current) drug therapy; Z87.891 Personal history of nicotine dependence; Z68.41 Body mass index [BMI] 40.0-44.9, adult
CPT/HCPCS: 36415; 70450; 71010; 74177; 80048; 80053; 81000; 82140; 83690; 84484; 85025; 85651; 86140; 94799; 96360; 99285; G0378; G0480; J1644; J1815; J2405; J7030; Q9967

== ENCOUNTER 2017-07-07 16:01 | Inpatient (IN) | payer MEDICARE, OTHER ==
[~2017-07-07] VITALS: Ht 182.9 cm; Wt 144.0 kg
[~2017-07-07 16:01] MED LIST changes: -ACAR50TA3 PO; -CEFU500T61 PO; +ONDA4TAB6 PO; -OXYB5TAB10 PO; +PROM25SU46 RC
[2017-07-07 16:15] VITALS: BP 90/56; PULSE 73; RESP 17; O2SAT 94
[2017-07-07 16:34] VITALS: BP 90/60; PULSE 74; RESP 21; O2SAT 95
--- NOTE | 2017-07-07 16:52 | DRSVH ---
PROCEDURE: X-RAY CHEST ONE VIEW, PORTABLE ([id number]) INDICATIONS: hypotension TECHNIQUE: One view of the chest was acquired. COMPARISON: [facility], CR, XR CHEST 1VW (PORTABLE), 05/01/2017, 19:47. FINDINGS: Surgical changes and devices: TANK CHARGER shunt catheter noted. Lungs and pleura: No pleural effusions or pneumothorax. Increased opacification of the left lung bas e compatible with atelectasis versus pneumonia. Mediastinum: Mediastinal contours appear normal. Heart size is normal. Bones and chest wall: No suspicious bony lesions. Overlying soft tissues appear unremarkable. IMPRESSION: Left basilar atelectasis versus pneumonia. Please correlate with clinical and laboratory data. Dictated by: Shana Chowdary MD, PhD on 07/07/2017 at 15:47 Approved by: Shana Chowdary MD, PhD on 07/07/2017 at 15:50
[2017-07-07 17:09] LABS: BASOPHILS % (AUTO) 0.7 % (0-3); EOSINOPHILS % (AUTO) 3.1 % (0-5); MONOCYTES % (AUTO) 9.4 % (4-12); Mean Corpuscular Hemoglobin 29.6 pg (27.0-35.0); Mean Corpuscular Volume 91.5 fL (81-100); NEUTROPHILS % (AUTO) 60.7 % (40-74); Platelet Count 161 bil/L (150-400)
[2017-07-07 17:22] LABS: INR 0.93 ratio
--- NOTE | 2017-07-07 17:28 | ED.REPORT ---
HPI-General Illness Date of Service Jul 07, 2017 ED Provider: Richard Wahl MD Patient is a 66 year old male with a history of CAD, hypertension and diabetes who presents to the ED via EMS after a fall. He reports that when he stood out of his chair, he became lightheaded, fell and couldn't get up. The home health nurse has noticed some increased weakness and reports he has not been taking his Lasix. Patient states that it has not been in his bubble pack so he hasn't been taking it. Per the patient's home nurse, the patient has not been able to take care of himself at home.The patient complains of leg swelling but reports that this has been an ongoing problem. Prior to arrival to the ED, the patient was hypotensive at 74/47. Patient denies chills, fever, vomiting or any pain. Nursing Notes Stated Complaint: WEAKNESS Chief Complaint: General Complaint Nursing Notes Reviewed: Yes Allergies: Coded Allergies: No Known Allergies (Verified , 07/07/17) Scheduled Alfuzosin ER (Alfuzosin ER) 10 Mg Tab.er.24h 10 MG PO DAILY Aspirin (Aspirin) 325 Mg Tablet 325 MG PO DAILY Atorvastatin Calcium (Atorvastatin Calcium) 80 Mg Tablet 80 MG PO DAILY Glipizide ER (Glipizide ER) 10 Mg Tab.er.24 10 MG PO QAM Metformin (Glucophage) 1,000 Mg Tablet 1,000 MG PO BID Metoprolol Tartrate (Metoprolol Tartrate) 50 Mg Tablet 50 MG PO BID Sertraline HCl (Sertraline) 50 Mg Tablet 50 MG PO DAILY Scheduled PRN Albuterol HFA (Proair HFA) 8.5 Gm Hfa.aer.ad 2 PUFFS INHALATION Q4H PRN PRN For Shortness of Breath Fluticasone Propionate (Fluticasone Propionate Nasal) 16 Gm [place].susp 2 SPRAY NS DAILY PRN PRN For Congestion Furosemide (Furosemide) 40 Mg Tablet 40 MG PO QAM PRN PRN edema Ondansetron (Zofran) 4 Mg Tablet 4 MG PO Q4H PRN PRN For Nausea Potassium Chloride (Potassium Chloride) 10 Meq Capsule.er 10 MEQ PO QAM PRN PRN w/lasix Promethazine HCl (Phenergan) 25 Mg Supp.rect 25 MG RC q6hr PRN PRN For Nausea General Time Seen by MD: 17:26 Chief Complaint Weakness Hx Obtained From: Patient Arrived By: Ambulance Sudden in Onset?: Yes Onset Occurred: 1 - 4 hours ago Severity: Current: No pain currently Recent Healthcare: Recent doctor visit, Recent hospitalization Past Medical History Past Medical History ACD Chronic hydrocephali Obstructive sleep apnea Frontal lobe deficit Reports: Coronary artery disease, Diabetes mellitus, Hypertension Past Surgical History Coronary artery stents Cardiac stents (3x) Reports: Cataract surgery Smoking History Former Smoker Social History Alcohol Use: Denies alcohol use Drug Use: Denies drug use Other Social History: Lives alone, Local resident Ambulatory Status Independent Review of Systems Full Review of Systems Constitutional: Reports: Weakness - generalized, Denies: Chills, Fever Cardiovascular: Denies: Chest pain GI: Denies: Abdominal pain, Vomiting Musculoskeletal: Denies: Extremity pain Neurologic: Reports: Lightheaded, Denies: Change LOC Complete sys rev & neg: except as marked. Physical Exam Vital Signs Vital Signs Date Time Temp Pulse Resp B/P Pulse Ox O2 Delivery O2 Flow Rate FiO2 07/07/17 16:34 74 21 90/60 95 Room Air 07/07/17 16:15 35.7 73 17 90/56 94 Room Air Initial VS: Reviewed General/Constitutional: Awake, Alert, No acute distress Head / Eyes: Atraumatic, Normocephalic Respiratory / Chest: Atraumatic, Breath sounds NL, Breath sounds = bilat, No respiratory distress Cardiovascular: Heart rate NL, Regular rhythm, Heart sounds NL hypotensive Abdomen: Atraumatic, Soft, Non-tender Lower Extremity / Pelvis / MS: Atraumatic bilateral 2+ edema below the knees Skin: Atraumatic, Color NL, No rash, Warm, Dry Neurologic: Oriented X3, Speech NL Interpretation & Diagnostics Lab Results Interpretation Result Diagram: 07/07/17 1700 07/07/17 1700 Test 07/07/17 17:00 White Blood Count 7.5th/mm3 (3.8-10.1) Red Blood Count 4.46mil/mm3 (4.40-5.80) Hemoglobin 13.2g/dL (13.8-17.2) Hematocrit 40.8% (41.0-50.0) Mean Corpuscular Volume 91.5fL (81-100) Mean Corpuscular Hemoglobin 29.6pg (27.0-35.0) Mean Corpuscular Hemoglobin Concent 32.4% (32.0-37.0) Red Cell Distribution Width 14.3% (12.3-15.4) Platelet Count 161bil/L (150-400) Neutrophils (%) (Auto) 60.7% (40-74) Lymphocytes (%) (Auto) 25.8% (14-46) Monocytes (%) (Auto) 9.4% (4-12) Eosinophils (%) (Auto) 3.1% (0-5) Basophils (%) (Auto) 0.7% (0-3) Prothrombin Time 9.9sec (8.1-12.5) Prothromb Time International Ratio 0.93ratio Sodium Level 141mEq/L (134-144) Potassium Level 4.3mEq/L (3.5-5.2) Chloride Level 103mEq/L (97-108) Carbon Dioxide Level 23mmol/L (18-29) Blood Urea Nitrogen 17mg/dL (8-27) Creatinine 0.70mg/dL (0.76-1.27) Estimat Glomerular Filtration Rate 120mL/min (>59) Glucose Level 145mg/dL (60-99) Lactic Acid Level 2.3mmol/L (0.4-2.0) Calcium Level 9.5mg/dL (8.5-10.1) Magnesium Level 1.6mg/dL (1.6-2.6) Total Bilirubin 0.3mg/dL (0.0-1.2) Aspartate Amino Transf (AST/SGOT) 16U/L (0-50) Alanine Aminotransferase (ALT/SGPT) 17U/L (0-44) Alkaline Phosphatase 101U/L (25-160) Troponin T < 0.010ug/L (0.0-0.011) Pro-B-Type Natriuretic Peptide 757.9pg/mL (0-376) Total Protein 6.7g/dL (6.4-8.4) Albumin 3.4g/dL (3.4-5.0) ECG Interpretation Time: 16:30 Interpreted by: ED physician Normal ECG Interpretation: Normal rate (71), Normal sinus rhythm X-Ray Chest Interpretation Chest Xray Interpretation: IMPRESSION: Left basilar atelectasis versus pneumonia. Please correlate with clinical and laboratory data. Dictated by: Shana Chowdary MD, PhD on 07/07/2017 at 15:47 Approved by: Shana Chowdary MD, PhD on 07/07/2017 at 15:50 Interpretation / Wet Read by: Interpret - Radiologist Re-Eval/Medical Decision Time of Eval: 17:39 Re-Evaluation/Progress Note: Discussed results and plan for admit. patient understands and agrees to plan. All questions were addressed. Consultation : Referral / Consult Name: Maral Marr DO Consulted With: Hospitalist Call Returned at: 18:05 Blender Operator: Agrees with eval, Agrees with plan, Accepts admit Counseled Regarding: Diagnosis, Lab results, Need for admission Discharge & Departure Primary Impression: Hypotension Hypotension type: unspecified hypotension type Qualified Code: I95.9 - Hypotension, unspecified Disposition: ADMITTED TO HOSPITAL Discharge Condition All VS Reviewed: Yes Condition: Stable Referrals: Brody Borjas MD (PCP) Scribe Attestation Portions of this note were transcribed by Christy Villarreal. I, Dr. Wahl personally performed the history, physical exam and medical decision-making; I reviewed and confirmed the accuracy of the information in the transcribed note. Signed by: Schuyler Eddy, 07/07/17 copies to: Brody Borjas MD, Kirk H MD Jul 07, 2017 17:27 Treva Villarreal Jul 07, 2017 17:36
[2017-07-07 17:37] LABS: TROPONIN T < 0.010 ug/L (0.0-0.011)
[2017-07-07 17:41] LABS: Magnesium 1.6 mg/dL (1.6-2.6)
[2017-07-07] MEDS ORDERED: Alum-Mag Hydrox-Simeth 30 mL Suspension PO PRN ×2 (18:05→20:40)
[2017-07-07] MEDS ORDERED: Ondansetron 2 mg/mL 2 mL Inj IVPUSH PRN ×2 (18:05→20:40)
[2017-07-07 18:34] VITALS: BP 107/53; PULSE 78; RESP 20; O2SAT 96
[2017-07-07] MEDS ORDERED: METF500T4 PO (18:55)
[2017-07-07] MEDS ORDERED: FUR20 PO (18:55)
[2017-07-07] MEDS ORDERED: TOLT2CAP8 PO (18:55)
[2017-07-07] MEDS ORDERED: PROM25TA14 PO (18:55)
[2017-07-07] MEDS ORDERED: MULT-1018 PO (18:55)
[2017-07-07 19:50] VITALS: BP 132/72; PULSE 67; RESP 20; O2SAT 98
[2017-07-07] MEDS ORDERED: Polyethylene Glycol (PEG) 17 Gm Powder PO PRN (20:40)
[2017-07-07] MEDS ORDERED: Furosemide 10 mg/mL 2 mL Inj IVPUSH ONE (21:15)
--- NOTE | 2017-07-07 22:45 | PCM.HPMED ---
Subjective Date of Service Jul 07, 2017 Primary Provider: Admitting Physician: Asa Bonner MD Primary Care Physician: Brody Borjas MD Attending Physician: Asa Bonner MD Chief Complaint: Weakness History of Present Illness: Yves Gonzalez is a 66-year-old man with past medical history significant for diabetes mellitus type II, hypertension, hyperlipidemia, and chronic hydrocephalus with recent surgery 1 month ago at [facility] who was brought in by EMS after home health nurse discovered the patient on the floor and significantly hypotensive with a blood pressure of 74/47. The patient notes that earlier that day he had been feeling progressively weak in his lower extremities. He notes mild increase in bilateral lower extremity swelling and increased pain in his feet. He states that he was walking to his chair and began to feel unsteady and weak and fell to the floor. He denies hitting his head or losing consciousness. He was unable to get up from the floor and fortunately his home health nurse arrived within 10-15 minutes of him falling. She helped him to his chair and took his blood pressure and subsequently called EMS when she found him to be hypotensive. The patient currently is feeling well and has no specific complaints. He does note that he has not been taking his Lasix as prescribed because they have not been his bubble pack. He also makes mention of possibly taking double his medication including metoprolol 50 mg. In regards to his hydrocephalus the patient has a shunt on the right side and states that he had a surgery on his left side to remove more fluid one month ago. He states that since then he has felt progressively weaker. He has not had a follow-up appointment with neurology. Patient cannot elucidate on the surgery or whether the outcomes were positive. He currently lives at home alone but has a home health nurse along with a bath aide that comes frequently. Per his report his medications are in a bubble pack and he takes them as directed although as mentioned above he may have taken too bubble packs this morning. On presentation to the ED patient's initial vitals were temperature 35.7, pulse 73, respiratory rate 17 satting 94% on room air, and blood pressure of 90/56. Initial labs were largely unremarkable. In the ED blood pressure significantly improved without intervention. Patient was transferred to the floor in stable condition. Review of Systems: Comprehensive review of systems was conducted with the patient and found to be negative except as noted above in HPI. Allergies Coded Allergies: No Known Allergies (Verified , 07/07/17) Home Medications Obtained from discharge summary on 05/04/2017: Discharge Medications Alfuzosin ER (Alfuzosin ER) 10 Mg Tab.er.24h 10 MG PO DAILY (Reported) Aspirin (Aspirin) 325 Mg Tablet 325 MG PO DAILY (Reported) Atorvastatin Calcium (Atorvastatin Calcium) 80 Mg Tablet 80 MG PO DAILY ( Reported) Glipizide ER (Glipizide ER) 10 Mg Tab.er.24 10 MG PO QAM (Reported) Metformin (Glucophage) 1,000 Mg Tablet 1,000 MG PO BID (Reported) Metoprolol Tartrate (Metoprolol Tartrate) 50 Mg Tablet 50 MG PO BID (Reported) Sertraline HCl (Sertraline) 50 Mg Tablet 50 MG PO DAILY (Reported) As needed Albuterol HFA (Proair HFA) 8.5 Gm Hfa.aer.ad 2 PUFFS INHALATION Q4H PRN PRN For Shortness of Breath (Reported) Fluticasone Propionate (Fluticasone Propionate Nasal) 16 Gm [place].susp 2 SPRAY NS DAILY PRN PRN For Congestion (Reported) Furosemide (Furosemide) 40 Mg Tablet 40 MG PO QAM PRN PRN edema (Reported) Ondansetron (Zofran) 4 Mg Tablet 4 MG PO Q4H PRN PRN For Nausea Prescribed by: SHEELA MCCRARY MD Potassium Chloride (Potassium Chloride) 10 Meq Capsule.er 10 MEQ PO QAM PRN PRN w/lasix (Reported) Promethazine HCl (Phenergan) 25 Mg Supp.rect 25 MG RC q6hr PRN PRN For Nausea ( Reported) PMH Chronic hydrocephalus Type II diabetes mellitus Hypertension Hyperlipidemia Obstructive sleep apnea on CPAP CAD status post PCI in 2003, stent in LAD and PDA Surgical History Surgery for hydrocephalus one month ago Shunt placement for hydrocephalus Family History Extensive family history of diabetes Social History Hx Alcohol Use: No Hx Substance Use: No Hx Tobacco Use: Yes (HX 2 PPD FOR 35 YEARS but quit in 2003) Smoking Status: Former Smoker Exam Vital Signs Vital Sign - Last Date Time Temp Pulse Resp B/P Pulse Ox O2 Delivery O2 Flow Rate FiO2 07/07/17 20:03 CPAP/BIPAP 07/07/17 19:50 36.9 67 20 132/72 98 Exam General: Morbidly obese male. Appropriately interactive. HEENT: Right parietal surgical scar present with possible underlying shunt palpated extending posterior to right ear. PERRLA, EOMI. Anicteric sclerae, moist conjunctivae, and no lid lag. Oropharynx moist and pink. Neck: Supple with full range of motion. No jugular venous distension. Cardiovascular: Regular rate and rhythm with soft systolic murmur. Pulmonary: Clear to auscultation bilaterally with no crackles, wheezes, or rhonchi. Normal respiratory effort with no use of accessory muscles. Abdomen: Obese, soft, nontender. Bowel sounds active. Extremities: Significant bilateral lower Flores the edema with no chronic venous stasis changes but significant erythema. Neurological: Muscle strength grossly intact and equal, no focal weakness, face symmetric, no tremors noted. Psychiatric: Normal mood and affect. Alert and oriented to person, place, and time. Cooperative and pleasant. Lab and Diagnostics Result Diagram: 07/07/17 1700 07/07/17 1700 X-Rays, CTs and MRIs X-RAY CHEST ONE VIEW, PORTABLE ([id number]) IMPRESSION: Left basilar atelectasis versus pneumonia. Please correlate with clinical and laboratory data. Dictated by: Shana Chowdary MD, PhD on 07/07/2017 at 15:47 Approved by: Shana Chowdary MD, PhD on 07/07/2017 at 15:50 Assessment & Plan 66 yo M with history of DM2, HTN, HLD, and chronic hydrocephalus who presented [facility] the ED from [facility] for concerns of nausea, CHAVEZ, and lethargy. Admitted for observation of his nausea and abdominal pain Hypotension, present on admission, resolved. - EMS reports blood pressure of 74/47. On presentation to the ED initial blood pressure was 90/56. Blood pressure quickly improved without intervention. - Etiology possibly due to taking additional metoprolol this morning. Other causes including infection, decreased by mouth intake, or neurologic causes cannot be ruled out at this time. - Close hemodynamic monitoring. - Will hold hypertension home medication - metoprolol tartrate 50 mg twice a day at this time. Bilateral lower extremity edema, present on admission, active. - Lower extremities with pitting edema extending to the knee bilaterally. No chronic venous stasis changes noted on the skin. Significant erythema present. No additional symptoms suggesting a CHF exacerbation. - Patient is a poor historian but from his report and home health nurse he has not been receiving his daily furosemide. - 1 dose of IV furosemide 20 mg given. Monitor for improvement. - Day team to determine need for further IV furosemide or restarting oral furosemide 20 mg daily. - Echocardiogram ordered. Last echocardiogram 04/13/2017 showed EF of 60-65% with mild concentric left ventricular hypertrophy, mildly dilated right ventricle and atrium. Generalized weakness, present on admission, active. - Likely secondary to patient's significant hypotension along with his lower extremity edema. Patient believes it is secondary to his recent procedure for his chronic hydrocephalus 1 month ago. - No focal neurologic deficits. Consider CT if weakness progresses or if there are new focal deficits. - Physical therapy evaluation ordered. Chronic hydrocephalus, present on admission, ongoing. - Patient states that he had a recent procedure 1 month ago at [facility]. He states they took more fluid off of his brain. He has not followed up with them since. He states his weakness has progressed since this procedure. - Patient sates he has a right-sided shunt although this is not visualized on head CT on 05/01/2017 and the patient states shunt was placed many years ago. This being said may be possible that this is the procedure he had 1 month ago. - On physical exam patient has a right-sided surgical scar and I believe I palpate a possible shunt on the right side as well. - Records requested from [facility]. Chronic stable conditions Type II diabetes mellitus - Last hemoglobin A1c was 8.3 in March. Repeat hemoglobin A1c pending. - Home regimen includes metformin and glipizide which will be held. - Low-dose correctional scale with lispro. CAD status post PCI - Stable, no anginal symptoms - Telemetry for CV monitoring - Continue daily aspirin 81 mg. Essential hypertension - Hold home medication due to hypotension - metoprolol tartrate 50 mg twice a day Hyperlipidemia - Continue home medication - atorvastatin 80 mg daily Obstructive sleep apnea - CPAP to be used at night. Possible depression - Last discharge summary shows sertraline on medication list. Patient denies. - Day team to clarify. PRN Medications - Acetaminophen as needed for mild pain/fever/headache - Bowel regimen as needed - Antiemetic as needed Patient is admitted under inpatient status with expected length of stay greater than 2 midnights due to severity of presenting symptoms, risk of adverse event, and complexity of treatment plan. Pain Evaluation: Adequate Pain Control GI Prophylaxis: Not indicated VTE Prophylaxis: Sub-Q Heparin (Unfractionated) VTE Mechanical Devices: Venous Foot Pump Resuscitation Status: CPR: Attempt Resuscitation Attending Statement The patient was seen and examined together with Dr. Astorga on 07/07 and I agree with the history, exam and plan as outlined in the note above. FELIX ASTORGA DO Jul 07, 2017 22:45 Asa Bonner MD Jul 08, 2017 06:44
[2017-07-07 23:00] VITALS: BP 108/63; PULSE 78; RESP 20; O2SAT 94
[2017-07-07] MEDS ORDERED: Glucose 40% Oral Gel 15 Gm Tube PO SCH (23:15)
[2017-07-07 23:22] LABS: APPEARANCE,URINE CLEAR (CLEAR,HAZY); COLOR,URINE STRAW (YELLOW); OCCULT BLOOD,URINE NEGATIVE (NEGATIVE); PH,URINE 5.5 (5.0-8.0); UROBILINOGEN,URINE NORMAL (NORMAL)
[2017-07-08] VITALS (7 sets, daily range): BP systolic 117–153; BP diastolic 64–93; PULSE 64–93; RESP 18–20; O2SAT 95–97
[2017-07-08] MEDS: Heparin 5,000 Unit/mL Inj SUBQ SCH ×3 (02:29→17:41)
[2017-07-08] MEDS ORDERED: Insulin Human REGular 300 Unit/3 mL Inj SUBQ SCH ×2 (02:30)
--- NOTE | 2017-07-08 06:49 | NUR ---
PCC Admit. Admit to Room 2002, from ED via gurney. Transfered to bed with assist, A/0 to self and location. 2+ bilateral lower extremity edema noted. Limited mobility r/t to pain (05/25), declined medication. MD at bedside to evaluate, ordered 20mg Lasix. Pt. incontinent of urine, re-educated on use of urinal with better results. VSS. Tele: SR in 70's with PAC. Report given to on coming RN.
[2017-07-08] MEDS: Tolterodine ER 2 mg ER24 Capsule PO SCH (09:06)
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
--- NOTE | 2017-07-08 10:53 | NUR ---
Evaluation completed. Please go to "Notes" then click on "Assessments and Notes" (bottom left corner of screen). Then select appropriate discipline tab on top of screen.
--- NOTE | 2017-07-08 13:55 | DRSVH ---
[facility] [address] [place] [address] Echocardiogram Report Name: ANTHONY HELTON LStudy Nba e: 07/08/2017 Height: 72 in Hospital Exam Location: [facility] Weight: 324 lb Gender: Male BSA: 2.6 m2 : 1950 Age: 66 yrs BP: 117/64 mmHg Reason For Study: EDEMA, HYPOTENSION Ordering Physician: Performed By: Rangel Henderson Referring Physician: Dr. Brody Borjas Interpretation Summary There is mild concentric left ventricular hypertrophy. The ejection fraction is estimated to be 60-65%. Assessment of diastolic parameters indicates a relaxation abnormality of the left ventricle, consistent with normal filling pressures. The right ventricle is normal in size and function. The IVC is of normal diameter and collapses greater than 50% with a sniff. This suggests a low right atrial pressure of 3 mm Hg. There is no pericardial effusion. No other echocardiographic abnormalities seen. No obvious cause for the patients edema and hypotension noted. Both LV and RV filling pressures appear to be normal. Procedure: A two-dimensional transthoracic echocardiogram with color flow and Doppler was performed. The study quality was technically difficult. Comparison is made with the echocardiogram of 04/13/17. A contrast injection of Definity was performed to improve assessment of LV function. The patient was in normal sinus rhythm during the exam. The patient had frequent PACs during the exam. Left Ventricle: The left ventricle is borderline dilated. There is mild concentric left ventricular hypertrophy. The ejection fraction is estimated to be 60-65%. There are no obvious focal wall motion abnormalities noted but poor endocardial definition reduces the sensitivity for the detection of such. Assessment of diastolic parameters indicates a relaxation abnormality of the left ventricle, consistent with normal filling pressures. Right Ventricle: The right ventricle is normal in size and function. Atria: Both atria are normal in size. The interatrial septum is intact with no evidence for an atrial septal defect. Mitral Valve: The mitral valve is normal in structure and function. There is no mitral regurgitation noted. Aortic Valve: The aortic valve is trileaflet. The aortic valve opens well. No aortic regurgitation is present. Tricuspid Valve: The tricuspid valve is normal in structure and function. There is a trace or physiologic amount of tricuspid regurgitation. Pulmonary artery pressures cannot be estimated because of the lack of a measurable TR jet velocity. Pulmonic Valve: The pulmonic valve was not visualized. Great Vessels: The aortic root is normal size. The ascending aorta is mildly enlarged. The pulmonary artery is normal size. The IVC is of normal diameter and collapses greater than 50% with a sniff. This suggests a low right atrial pressure of 3 mm Hg. Pericardium/ Pleura There is no pericardial effusion. There is no pleural effusion. MMode/2D Measurements & Calculations LVIDd: 6.0 cm LVIDs: 3.0 cm LA A2 area: 23.1 cm FS: 49.4 % LA A4 area: 21.5 cm IVSd: 1.5 cm LA length (vol): 6.4 cm LVPWd: 0.92 cm LA vol: 65.6 ml LA vol index: 25.1 ml/m IVC diam: 1.9 cm RA long axis: 5.5 cm asc Aorta Diam: 3.7 cm RA area: 16.9 cm RA vol: 43.9 ml RA : 16.8 ml/m2 LV terrell. diameter/BSA (cm/m^2): 2.3 LV sys. diameter/BSA (cm/m^2): 1.2 Doppler Measurements & Calculations Ao V2 max: 146.6 cm/sec MV E max bowen: 62.7 cm/sec Ao max P.6 mmHg MV A max bowen: 82.8 cm/sec Ao mean P.1 mmHg MV E/A: 0.76 MV dec time: 0.22 sec Med Peak E' Bowen: 5.7 cm/sec E/E' med: 11.0 Pulm A Revs Bowen: 32.9 cm/sec Ao V2 mean: 107.5 cm/sec Ao V2 VTI: 29.1 cm Reading Physician:01:54 PM
--- NOTE | 2017-07-08 14:20 | NUR ---
Right leg/DC tele/DC NS/Ambulate Pt right leg dressing C/D/I, dressing changed this am by surgical team. Order to DC tele and NS. Pt ambulating hallway with IV ABX, pt tolerating well. Family with pt ambulating. Care continues.
[2017-07-09] MEDS: Heparin 5,000 Unit/mL Inj SUBQ SCH ×3 (00:14→18:13)
[2017-07-09 03:48] VITALS: BP 155/83; PULSE 85; RESP 18; O2SAT 95
[2017-07-09 03:55] LABS: BASOPHILS % (AUTO) 0.7 % (0-3); EOSINOPHILS % (AUTO) 5.6 % (0-5); MONOCYTES % (AUTO) 9.4 % (4-12); Mean Corpuscular Hemoglobin 29.4 pg (27.0-35.0); Mean Corpuscular Volume 90.9 fL (81-100); NEUTROPHILS % (AUTO) 51.4 % (40-74); Platelet Count 134 bil/L (150-400)
[2017-07-09 07:45] VITALS: BP 159/106; PULSE 58; RESP 20; O2SAT 97
[2017-07-09] MEDS: Tolterodine ER 2 mg ER24 Capsule PO SCH (07:54)
--- NOTE | 2017-07-09 12:19 | NUR ---
Social Work: Assessment D&A: Please see initial assessment. TARGET MAN reviewed EMR, which states pt is here for hypotension and peripheral edema. Pt's primary insurance is Medicare, with a [employer] sup. Pt's PCP is Brody Borjas MD. Pt's readmit score has not yet been assessed. TARGET MAN met with pt at pt's bedside and explained TARGET MAN role. Pt reports that he lives alone in an apartment with one external step. His neighbor, Cheo is his cosmetics and toiletries salesperson but the pt does not know his phone number. Pt uses a walker to ambulate. at baseline, and relies on [employer] or a taxi for transportation. Pt does not endorse a hx of SNF admission, but is open with [facility] for RN/ TOOL OR DIE DRAWING CHECKER. Pt receives [facility] and [facility] but does not have a case consultant. Per P.T. assessment, pt is appropriate for SNF at d/c. TARGET MAN provided pt with the approved list of contracted facilities; pt has yet to communicate a preference. P: Pt likely to d/c to SNF, TARGET MAN awaiting pt preferences. TARGET MAN team will continue to follow. ERICA Shore Addendum: 07/09/17 at 1229 by JOEY HOFFMAN Amended: Links added.
--- NOTE | 2017-07-09 13:04 | NUR ---
Case Management: IMM given and explained to pt. Kate RUIZRN
[2017-07-09 16:34] VITALS: BP 141/77; PULSE 60; RESP 20; O2SAT 98
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
--- NOTE | 2017-07-09 17:22 | NUR ---
Incontinent/standing wt BID Pt incontinent, per CELL REPAIRER full brief at all three changes so far this shift. CELL REPAIRER and RN aware of nurse communication of BID standing wt. Care continues.
[2017-07-09 19:47] VITALS: BP 131/79; PULSE 69; RESP 18; O2SAT 96
[2017-07-09 23:51] VITALS: BP 128/80; PULSE 58; RESP 18; O2SAT 93
[2017-07-10] MEDS: Heparin 5,000 Unit/mL Inj SUBQ SCH ×2 (00:36→09:03)
[2017-07-10 02:48] LABS: BASOPHILS % (AUTO) 0.8 % (0-3); EOSINOPHILS % (AUTO) 4.6 % (0-5); Mean Corpuscular Hemoglobin 29.5 pg (27.0-35.0); Mean Corpuscular Volume 88.9 fL (81-100); NEUTROPHILS % (AUTO) 50.8 % (40-74); Platelet Count 154 bil/L (150-400)
[2017-07-10 03:19] LABS: Magnesium 1.8 mg/dL (1.6-2.6)
[2017-07-10 03:29] VITALS: BP 139/88; PULSE 60; RESP 20; O2SAT 94
[2017-07-10 08:58] VITALS: BP 181/102; PULSE 61; RESP 14; O2SAT 94
[2017-07-10] MEDS: Tolterodine ER 2 mg ER24 Capsule PO SCH (09:01)
[2017-07-10] MEDS: Insulin LISPRO Low-Dose Scale SUBQ PRN ×2 (09:09→13:00)
--- NOTE | 2017-07-10 10:35 | NUR ---
PENITENTIARY TRANSFER : Gave access and referral to [facility] Tony Cavazos and Lauren Coker per CONSTRUCTION TEACHER and orders. Addendum: 07/10/17 at 1108 by DAVE MILLAN CM [facility] can accept with Varun to follow Lauren Coker is currently reviewing patient was there within the last 30days Updated CONSTRUCTION TEACHER
--- NOTE | 2017-07-10 10:42 | PCM.PNMED ---
Subjective Date of Service Jul 10, 2017 Subjective Patient seen and examined this morning. We discussed discharging to halfway. He will think about this and discuss again with the social work specialist. Nursing has no concerns. Exam Vital Signs Vital Sign - Last Date Time Temp Pulse Resp B/P Pulse Ox O2 Delivery O2 Flow Rate FiO2 07/10/17 08:58 36.7 61 14 181/102 94 Room Air Intake and Output 07/09/17 07/09/17 07/10/17 Cumulative From/Thru 14:58 22:58 06:58 07/07/17 16:15 - 07/10/17 06:14 Intake Total 640 ml 600 ml 3310 ml Output Total 600 ml Balance 640 ml 600 ml 2710 ml Intake Oral 640 ml 600 ml 3060 ml IV Total 250 ml Output Urine Total 600 ml # Voids 4 4 20 # Bowel Movements 1 Exam General: No acute distress, well-developed, well-nourished HEENT: U-shaped scar over right frontal bone at site of recent shunt placement Neck: Supple with full range of motion. No jugular venous distension. Cardiovascular: Regular rate and rhythm with no murmurs, rubs, or gallops appreciated Pulmonary: Clear to auscultation bilaterally with no crackles, wheezes, or rhonchi. Normal respiratory effort with no use of accessory muscles. Abdomen: Soft, nontender, nondistended Extremities: 3+ pitting edema bilaterally, improved from last exam. Erythema on anterior lower legs and dorsal feet bilaterally improving. Skin: Scaling and erythema on lower legs and dorsal feet Neurological: Cranial nerves grossly intact. Psychiatric: Blunted affect. Alert and oriented to person, place, and time. IVs and Medications Medications Reviewed: Medications were reviewed in detail Lab and Diagnostics Result Diagram: 07/10/17 0240 07/10/17 0240 X-Rays, CTs and MRIs . X-RAY CHEST ONE VIEW, PORTABLE IMPRESSION: Left basilar atelectasis versus pneumonia. Please correlate with clinical and laboratory data. Dictated by: Shana Chowdary MD, PhD on 07/07/2017 Cardiac Echo Impressions . Echocardiogram Report Interpretation Summary: There is mild concentric left ventricular hypertrophy. The ejection fraction is estimated to be 60-65%. Assessment of diastolic parameters indicates a relaxation abnormality of the left ventricle, consistent with normal filling pressures. The right ventricle is normal in size and function. The IVC is of normal diameter and collapses greater than 50% with a sniff. This suggests a low right atrial pressure of 3 mm Hg. There is no pericardial effusion. No other echocardiographic abnormalities seen. No obvious cause for the patients edema and hypotension noted. Both LV and RV filling pressures appear to be normal. Joshua Kimball on 07/08/2017 Assessment & Plan 66 yo M with history of DM2, HTN, HLD, and chronic hydrocephalus who presented to the ED for concerns of nausea, CHAVEZ, and lethargy. Admitted for hypotension, nausea and abdominal pain. Hospital day 3 Hypotension, present on admission, resolved. - EMS reports blood pressure of 74/47. On presentation to the ED initial blood pressure was 90/56. Blood pressure quickly improved without intervention. - Etiology possibly due to taking additional metoprolol on the morning of admission. Neurologic cause cannot be ruled out at this time. - Continue hemodynamic monitoring. - Home metoprolol 50 mg by mouth twice a day restarted secondary to hemodynamic state - Social work consulted to evaluate living situation and abilities to manage medications. Will likely discharged to SNF today. Bilateral lower extremity edema, present on admission, improving. Unknown chronicity. Possibly due to iatrogenic cardiac insufficiency in the setting of chronic deconditioning -On admission Lower extremities with pitting edema extending to the knee bilaterally. No chronic venous stasis changes noted on the skin. No additional symptoms suggesting a CHF exacerbation. -Patient is a poor historian but from his report and home health nurse he has not been receiving his daily furosemide. -Continue Lasix by mouth -Last echocardiogram 04/13/2017 showed EF of 60-65% with mild concentric left ventricular hypertrophy, mildly dilated right ventricle and atrium. -Repeat echo unchanged from prior, no obvious cause for edema and hypotension -Recorded I's and O's show a total net positive of 1.5 L with minimal recorded urinary output secondary to patient incontinence. -Canceled MRI of lumbar spine to look for spinal stenosis. No saddle anesthesia. Patient's history of hydrocephalus is sufficient to explain his incontinence, decreasing likelihood of cauda equina syndrome. -Patient is noncompliant with urinal use nor is he receptive to Pradhan cath placement. -Bladder scan pending -There is communication for standing weights twice a day Generalized weakness, present on admission, improving. -Possibly secondary to patient's significant hypotension on admission along with his lower extremity edema, Possibly due to chronic deconditioning, Patient believes it is secondary to his recent procedure for his chronic hydrocephalus 1 month ago. -No focal neurologic deficits. -Physical therapy working with patient. He is using front-wheeled walker. -Continue to monitor Chronic hydrocephalus, present on admission, ongoing - Patient states that he had a recent procedure 1 month ago at [facility]. He states they took more fluid off of his brain. He has not followed up with them since. He states his weakness has progressed since this procedure. - Patient sates he has a right-sided shunt although this is not visualized on head CT on 05/01/2017 - Records received from [facility] reviewed Type II diabetes mellitus - Last hemoglobin A1c was 8.3 in March. Repeat hemoglobin A1c pending - Home regimen includes metformin and glipizide which will be held. - Low-dose correctional scale with lispro. Blood sugar 151 04/03/70 CAD status post PCI - Stable, no anginal symptoms - Continue daily aspirin 81 mg. Essential hypertension -Resume home metoprolol as above -Continue to closely monitor Hyperlipidemia - Continue home medication - atorvastatin 80 mg daily Obstructive sleep apnea - CPAP to be used at night. Possible depression -Patient states sertraline was discontinued by his primary doctor. Morbid Obesity -BMI 44 -Heart healthy diet PRN Medications - Acetaminophen as needed for mild pain/fever/headache - Bowel regimen as needed - Antiemetic as needed Disposition: Patient will likely discharged today to a SNF. GI Prophylaxis: Not indicated VTE Prophylaxis: Sub-Q Heparin (Unfractionated) VTE Mechanical Devices: Venous Foot Pump Resuscitation Status: CPR: Attempt Resuscitation Attending Statement The patient was seen and examined together with Dr. Martinez on 07/10/17 and I have added additional information to the note above. Tyrone Martinez DO Jul 10, 2017 10:42 Maral Marr DO Jul 10, 2017 12:35 hospitalization. GI Prophylaxis: Not indicated VTE Prophylaxis: Sub-Q Heparin (Unfractionated) VTE Mechanical Devices: Venous Foot Pump Resuscitation Status: CPR: Attempt Resuscitation Tyrone Martinez DO Jul 10, 2017 10:42 Tyrone Martinez DO Jul 10, 2017 10:42
--- NOTE | 2017-07-10 10:46 | NUR ---
Evaluation completed. Please go to "Notes" then click on "Assessments and Notes" (bottom left corner of screen). Then select appropriate discipline tab on top of screen.
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
[2017-07-10] MEDS ORDERED: Nystatin 100,000 Unit/Gm 15 Gm Powder TOPICAL SCH (11:15)
[2017-07-10 12:06] VITALS: BP 140/86; PULSE 54; RESP 18; O2SAT 96
--- NOTE | 2017-07-10 14:40 | PCM.DIMED ---
Tyrone Martinez DO 07/10/17 1436: Discharge Instructions Date of Service Jul 10, 2017 Dates of Hospitalization Jul 07, 2017 at 18:24 Discharge Diagnosis Discharge Diagnosis Chronic hydrocephalus Hypotension Bilateral lower extremity edema Generalized weakness Type 2 diabetes mellitus Coronary artery disease Hypertension Hyperlipidemia Obstructive sleep apnea Morbid obesity Medication Instructions Additional med instructions Continue to take your regularly prescribed medications as directed. While you are at the nursing care facility, you will have a assistance with taking these properly. Test Results Test Results Your blood cultures have been negative for infection. Diet Discharge Diet: Diabetic Activity Discharge Activity: Limited until seen by PCP Call your provider Call your provider for: Fever or Chills, Shortness of breath, Bleeding, Chest pain, Vomitting, Excessive diarrhea, Weakness (unilateral) Patient Instructions Patient Instructions Continue to get stronger at the nursing facility. Please follow up with your primary care provider after you leave there. Follow-up Provider: Brody Borjas MD Follow-up with PCP in: 3 weeks Maral Marr DO 07/10/17 1547: Discharge Instructions Attending's Statement The patient was seen and examined together with Dr. Martinez on 07/10/17 and I agree with the history, exam and plan as outlined in the note above. Tyrone Martinez DO Jul 10, 2017 14:36 Maral Marr DO Jul 10, 2017 15:47
--- NOTE | 2017-07-10 14:49 | PCM.DC.MED ---
Discharge Summary Date of Service Jul 10, 2017 Dates of Hospitalization Date of Hospital Admission Jul 07, 2017 at 18:24 Date of Discharge: Jul 10, 2017 Providers: Admitting Physician: Asa Bonner MD Primary Care Physician: Brody Borjas MD Attending Physician: Maral Marr DO Diagnosis at Time of Discharge Diagnosis at Time of Discharge Chronic hydrocephalus Hypotension Bilateral lower extremity edema Generalized weakness Type 2 diabetes mellitus Coronary artery disease Hypertension Hyperlipidemia Obstructive sleep apnea Morbid obesity Procedures XRay, CTs & MRIs . X-RAY CHEST ONE VIEW, PORTABLE IMPRESSION: Left basilar atelectasis versus pneumonia. Please correlate with clinical and laboratory data. Dictated by: Shana Chowdary MD, PhD on 07/07/2017 ECG 12 Lead Sinus rhythm heart rate of 71. Cardiac Echo Impression . Echocardiogram Report Interpretation Summary: There is mild concentric left ventricular hypertrophy. The ejection fraction is estimated to be 60-65%. Assessment of diastolic parameters indicates a relaxation abnormality of the left ventricle, consistent with normal filling pressures. The right ventricle is normal in size and function. The IVC is of normal diameter and collapses greater than 50% with a sniff. This suggests a low right atrial pressure of 3 mm Hg. There is no pericardial effusion. No other echocardiographic abnormalities seen. No obvious cause for the patients edema and hypotension noted. Both LV and RV filling pressures appear to be normal. Joshua Kimball on 07/08/2017 Brief History Yves Gonzalez is a 66-year-old man with past medical history significant for diabetes mellitus type II, hypertension, hyperlipidemia, and chronic hydrocephalus with recent shunt surgery [address] [facility] who was brought in by EMS after home health nurse discovered the patient on the floor and significantly hypotensive with a blood pressure of 74/47. The patient notes that earlier that day he had been feeling progressively weak in his lower extremities. He notes mild increase in bilateral lower extremity swelling and increased pain in his feet. He states that he was walking to his chair and began to feel unsteady and weak and fell to the floor. He denies hitting his head or losing consciousness. He also makes mention of possibly taking double his medication including metoprolol 50 mg. During his hospital stay, his blood pressure normalized and he was able to resume his daily metoprolol. His bilateral lower lower extremity edema and erythema is mildly improved. His echocardiogram in the hospital does not show any change in cardiac function since his last ultrasound. The patient continues to be incontinent of urine and occasionally with stool, which made it difficult to assess his ins and outs. He was receiving daily furosemide which clinically appeared to reduce his volume status. Physical therapy worked with the patient and he has been ambulating with front-wheeled walker. He agreed to discharge to a nursing care facility for rehabilitation due to his generalized weakness and chronic deconditioning. Hospital Course Please see below for detailed hospital course Hypotension, present on admission, resolved. - EMS reports blood pressure of 74/47. On presentation to the ED initial blood pressure was 90/56. Blood pressure quickly improved without intervention. - Etiology possibly due to taking additional metoprolol on the morning of admission. - Home metoprolol 50 mg by mouth twice a day restarted - Social work consulted to evaluate living situation and abilities to manage medications. Bilateral lower extremity edema, present on admission, improving. -On admission Lower extremities with pitting edema extending to the knee bilaterally. No chronic venous stasis changes noted on the skin. No additional symptoms suggesting a CHF exacerbation. -Patient is a poor historian but from his report and home health nurse he has not been receiving his daily furosemide. -Continue Lasix by mouth -Last echocardiogram 04/13/2017 showed EF of 60-65% with mild concentric left ventricular hypertrophy, mildly dilated right ventricle and atrium. -Repeat echo unchanged from prior, no obvious cause for edema and hypotension -There is communication for standing weights twice a day Generalized weakness, present on admission, improving. -Possibly secondary to patient's significant hypotension on admission along with his lower extremity edema, Possibly due to chronic deconditioning, Patient believes it is secondary to his recent procedure for his chronic hydrocephalus 1 month ago. -No focal neurologic deficits. -He is using front-wheeled walker. Chronic hydrocephalus, present on admission, ongoing -Status post right sided intracranial shunt. He states his weakness has progressed since this procedure. - Records received from [facility] reviewed Type II diabetes mellitus, present on admission, stable - Last hemoglobin A1c was 8.3 in March. Repeat hemoglobin A1c 6.9 on 07/07/17 - Home regimen includes metformin and glipizide CAD status post PCI, stable - Stable, no anginal symptoms - Continue daily aspirin 81 mg. Essential hypertension, stable -Resume home metoprolol as above -Continue to closely monitor Hyperlipidemia, stable - Continue home medication - atorvastatin 80 mg daily Obstructive sleep apnea, stable - CPAP to be used at night. Possible depression -Patient states sertraline was discontinued by his primary doctor. Morbid Obesity -BMI 44 -Heart healthy diet Disposition: Patient will be discharged today to a SNF Exam Vital Signs (Last) Date Time Temp Pulse Resp B/P Pulse Ox O2 Delivery O2 Flow Rate FiO2 07/10/17 12:06 36.5 54 18 140/86 96 Room Air Exam General: No acute distress, well-developed, well-nourished HEENT: U-shaped scar over right frontal bone at site of recent shunt placement Neck: Supple with full range of motion. No jugular venous distension. Cardiovascular: Regular rate and rhythm with no murmurs, rubs, or gallops appreciated Pulmonary: Clear to auscultation bilaterally with no crackles, wheezes, or rhonchi. Normal respiratory effort with no use of accessory muscles. Abdomen: Soft, nontender, nondistended Extremities: 3+ pitting edema bilaterally, improved from last exam. Erythema on anterior lower legs and dorsal feet bilaterally improving. Skin: Scaling and erythema on lower legs and dorsal feet Neurological: Cranial nerves grossly intact. Psychiatric: Blunted affect. Alert and oriented to person, place, and time. Test 07/07/17 17:00 07/07/17 21:50 07/07/17 23:10 07/10/17 02:40 Prothrombin Time 9.9sec (8.1-12.5) Prothromb Time International Ratio 0.93ratio Hemoglobin A1c 6.9% (4.8-5.6) Troponin T < 0.010ug/L (0.0-0.011) Pro-B-Type Natriuretic Peptide 757.9pg/mL (0-376) Lactic Acid Level 1.3mmol/L (0.4-2.0) Urine Color Straw (YELLOW) Urine Appearance Clear (CLEAR,HAZY) Urine pH 5.5 (5.0-8.0) Urine Specific [place] 1.006 (1.003-1.035) Urine Protein Negativemg/dL (NEG,TRACE) Urine Glucose (UA) Negativemg/dL (NEGATIVE) Urine Ketones Negativemg/dL (NEGATIVE) Urine Occult Blood Negative (NEGATIVE) Urine Nitrite Negative (NEGATIVE) Urine Bilirubin Negative (NEGATIVE) Urine Urobilinogen Normalmg/dL (NORMAL) Urine Leukocyte Esterase Negative (NEGATIVE) Urine RBC 0-2/hpf (0-2) Urine WBC 0-5/hpf (0-5) Urine Epithelial Cells Occasional/hpf (NONE-MOD) Urine Crystals None seen (NONE SEEN) Urine Bacteria None/hpf (NONE-FEW) Urine Hyaline Casts None/lpf (NONE) Urine Granular Casts None seen (NONE SEEN) Urine Waxy Casts None seen (NONE SEEN) Urine Red Blood Cell Casts None seen (NONE SEEN) Urine White Blood Cell Casts None seen (NONE SEEN) Urine Mucus None seen (None Seen) Urine Trichomonas None seen (NONE SEEN) Urine Yeast None (NONE SEEN) Urinalysis Comment None Urine Culture Reflexed Not indicated White Blood Count 6.4th/mm3 (3.8-10.1) Red Blood Count 4.34mil/mm3 (4.40-5.80) Hemoglobin 12.8g/dL (13.8-17.2) Hematocrit 38.6% (41.0-50.0) Mean Corpuscular Volume 88.9fL (81-100) Mean Corpuscular Hemoglobin 29.5pg (27.0-35.0) Mean Corpuscular Hemoglobin Concent 33.2% (32.0-37.0) Red Cell Distribution Width 13.9% (12.3-15.4) Platelet Count 154bil/L (150-400) Neutrophils (%) (Auto) 50.8% (40-74) Lymphocytes (%) (Auto) 34.6% (14-46) Monocytes (%) (Auto) 9.0% (4-12) Eosinophils (%) (Auto) 4.6% (0-5) Basophils (%) (Auto) 0.8% (0-3) Sodium Level 136mEq/L (134-144) Potassium Level 4.0mEq/L (3.5-5.2) Chloride Level 98mEq/L (97-108) Carbon Dioxide Level 26mmol/L (18-29) Blood Urea Nitrogen 15mg/dL (8-27) Creatinine 0.59mg/dL (0.76-1.27) Estimat Glomerular Filtration Rate 146mL/min (>59) Glucose Level 151mg/dL (60-99) Calcium Level 9.0mg/dL (8.5-10.1) Magnesium Level 1.8mg/dL (1.6-2.6) Total Bilirubin 0.4mg/dL (0.0-1.2) Aspartate Amino Transf (AST/SGOT) 11U/L (0-50) Alanine Aminotransferase (ALT/SGPT) 12U/L (0-44) Alkaline Phosphatase 90U/L (25-160) Total Protein 6.2g/dL (6.4-8.4) Albumin 3.1g/dL (3.4-5.0) Discharge Medications Discharge Medications Alfuzosin ER (Alfuzosin ER) 10 Mg Tab.er.24h 10 MG PO DAILY (Reported) Aspirin (Aspirin) 325 Mg Tablet 325 MG PO DAILY (Reported) Atorvastatin Calcium (Atorvastatin Calcium) 80 Mg Tablet 80 MG PO DAILY ( Reported) Glipizide ER (Glipizide ER) 10 Mg Tab.er.24 10 MG PO QAM (Reported) Metformin (Metformin) 500 Mg Tablet 500 MG PO BID (Reported) Metoprolol Tartrate (Metoprolol Tartrate) 50 Mg Tablet 50 MG PO BID (Reported) Multivitamin (Multi Vitamin Daily) 1 Each Tablet 1 EACH PO DAILY (Reported) Tolterodine Tartrate ER (Tolterodine Tartrate ER) 2 Mg Capsule 2 MG PO DAILY ( Reported) As needed Albuterol HFA (Proair HFA) 8.5 Gm Hfa.aer.ad 2 PUFFS INHALATION Q4H PRN PRN For Shortness of Breath (Reported) Furosemide (Furosemide) 20 Mg Tab 20 MG PO DAILY PRN PRN EDEMA (Reported) Potassium Chloride (Potassium Chloride) 10 Meq Capsule.er 10 MEQ PO QAM PRN PRN w/lasix (Reported) Promethazine (Promethazine) 25 Mg Tablet 25 MG PO Q6H PRN PRN For Nausea ( Reported) Additional med instructions Continue to take your regularly prescribed medications as directed. While you are at the nursing care facility, you will have a assistance with taking these properly. Followup Plan Disposition: [facility] Follow-up plan Follow-up with primary care physician after discharge from [facility]. Discharge Diet: Diabetic Discharge Activity: Limited until seen by PCP Patient Instructions Continue to get stronger at the nursing facility. Please follow up with your primary care provider after you leave there. Follow-up Provider: Brody Borjas MD Follow-up with PCP in: 3 weeks Time spent Greater than 35 minutes Attending Statement The patient was seen and examined together with Dr. Martinez on 07/10/17 and I have added additional information to the note above. copies to: Juanito Bond Aaron C DO Jul 10, 2017 14:49 Maral Marr DO Jul 10, 2017 15:54
--- NOTE | 2017-07-10 15:08 | NUR ---
Social Work: Discharge D: Pt has discharge orders to go to long term/rehab. Patient has been accepted at [facility] with Dr. Bond to follow. PPW, instructions and PASSR faxed to [facility]. Transportation to be arranged between 4:00-4:30pm. [employer] confirmed this plan with the patient who agrees. bedside RN is aware and will prep patient for discharge. A: Pt who will require on going rehab for continued strengthening and improvement towards his baseline functional mobility. P: Pt to discharge to [facility] with Dr. Bond to follow. No further sw discharge needs identified at this time. ERICA Anguiano
--- NOTE | 2017-07-10 16:29 | NUR ---
Discharge Pt discharged to [facility] with transport by facility staff. Pt IV dc'd intact, all belongings were gathered and transported with pt. Report called to Coretta VILLARREAL at [facility].
== END 2017-07-10 16:25 | DRG 918 ==
LOC: EDBD 16:01 → SED 16:37 → OBSVTOIN 18:24 → PCC 18:24
PROVIDERS: ADMIT Hospitalist; ATTEND Neuromusculoskeletal Medicine & OMM
DX: T44.7X1A Poisoning by beta-adrenoreceptor antagonists, accidental (unintentional), initial encounter (principal); G91.9 Hydrocephalus, unspecified; Z68.41 Body mass index [BMI] 40.0-44.9, adult; I95.2 Hypotension due to drugs; I50.9 Heart failure, unspecified; I25.10 Atherosclerotic heart disease of native coronary artery without angina pectoris; I10 Essential (primary) hypertension; R32 Unspecified urinary incontinence; G47.33 Obstructive sleep apnea (adult) (pediatric); E11.9 Type 2 diabetes mellitus without complications; Z79.82 Long term (current) use of aspirin; Z95.5 Presence of coronary angioplasty implant and graft; Z87.891 Personal history of nicotine dependence; E78.5 Hyperlipidemia, unspecified; E66.01 Morbid (severe) obesity due to excess calories